=== PATIENT | male | born 1940 | race Caucasian/White ===

== ENCOUNTER 2020-06-03 20:54 | Inpatient (IN) | payer OTHER, SELFPAY ==
[2020-06-03] VITALS (9 sets, daily range): BP systolic 81–143; BP diastolic 51–84; PULSE 77–110; RESP 13–20; TEMP 36.2; O2SAT 93–100; BMI 29.1
--- NOTE | 2020-06-03 20:59 | ED_ITS ---
HPI - GI Bleed General Chief complaint: GI Bleed Stated complaint: BLEEDING ANAL Time Seen by Provider: 06/03/20 20:59 Source: patient and family Mode of arrival: Ambulatory Limitations: no limitations History of Present Illness HPI Narrative: 79M nonsmoker with history of Parkinson's, Diverticulosis, CAD, HTN, and Polymyalgia Rheumatica [resents with 4 days of bright red blood streaks with bowel movements. Today he started developing some lower abdominal cramping followed by a large bloody bowel movement. He felt some improvement in the lower cramping after that bowel movement. He feels a bit fatigued and l ightheaded, particularly with standing and ambulating. He denies any significant shortness of breath. He denies much in the way of pain. He takes no blood thinners and denies any history of gastrointestinal bleeding. He states he thinks he does have a history of diverticulosis. He denies any runny nose, sore throat nor cough. He has had no fever chills denies any exposure to persons known to be positive or under suspicion for COVID-19. He had seen his primary care provider this morning, when symptoms were much milder, and there was discussion about connecting him with a surgeon or environmental services associate but there was no opening until July. His symptoms worsened significantly this evening with the large bloody bowel movements as mentioned above. Related Data Allergies Allergy/AdvReac Type Severity Reaction Status Date / Time epinephrine [From ADRENALIN] Allergy Unknown Verified 06/03/20 21:02 meperidine [From DEMEROL] Allergy Unknown Verified 06/03/20 21:02 Penicillins [PENICILLINS] Allergy Unknown Verified 06/03/20 21:02 Review of Systems Constitutional Constitutional: Denies chills, Reports fatigue, Denies fever(s), Denies frequent falls, Reports lethargy and Reports weakness Eyes Eyes: Denies change in vision, Denies eye discharge, Denies irritation and Denies loss of vision ENT Ears, Nose, Mouth, and Throat: Denies change in voice, Denies dizziness, Denies neck pain, Denies sore throat and Denies throat swelling Cardiovascular Cardiovascular: Denies chest pain, Denies irregular heart rhythm, Denies lightheadedness, Denies palpitations, Denies dyspnea, Denies dyspnea on exertion and Denies orthopnea Respiratory Respiratory: Denies cough, Denies dyspnea, Denies dyspnea on exertion and Denies wheezing Gastrointestinal Gastrointestinal: Reports abdominal pain, Reports hematochezia, Denies change in bowel habits, Denies diarrhea, Denies nausea and Denies vomiting Musculoskeletal Musculoskeletal: Denies neck pain and Denies numbness Integumentary/Breasts Skin/Breast: Denies pruritus, Denies erythema, Denies rash and Denies wounds Neurologic Neurologic: Denies behavioral changes, Denies confusion, Denies dizziness, De nies frequent falls, Denies loss of vision, Denies numbness and Reports weakness Psychiatric Psychiatric: Denies anxiety, Denies behavioral changes, Denies confusion, Denies depression, Denies homicidal ideation and Denies suicidal ideation Endocrine Endocrine: Reports fatigue, Denies flushing and Denies palpitations Hematologic/Lymphatic Hematologic/Lymphatic: Denies easy bruising Allergic/Immunologic Allergic/Immunologic: Denies urticaria, Denies throat swelling and Denies wheezing Patient History Social History Smoking Status: Never smoker Smoking Status: Never smoker alcohol intake frequency: 0-2 drinks per day Substance Use Type: does not use Exam Narrative Exam Narrative: GENERAL: [79] year old patient appears stated age. Well- nourished, well-developed patient, in mild distress. HEAD: Atraumatic. Normocephalic. EYES: Pupils equal round and reactive. Extraocular motions intact. No scleral icterus. No injection or drainage. ENT: Nose without bleeding, purulent drainage. Throat without erythema, tonsillar hypertrophy or exudate. Airway patent. NECK: Trachea midline. Non tender CARDIOVASCULAR: Regular rate and rhythm without murmurs, gallops, or rubs. RESPIRATORY: Clear to auscultation. Breath sounds equal bilaterally. No wheezes, rales, or rhonchi. GASTROINTESTINAL: Abdomen soft, non-tender, nondistended. Bowel sounds present in all 4 quadrants RECTAL: grossly heme positive EXTREMITIES: No edema or joint tenderness. BACK: Nontender without deformity or crepitance. No flank tenderness. NEURO: AOx3. SKIN: No rash or erythema of visible areas Initial Vital Signs Initial Vital Signs: Vital Signs Pulse Oximetry 100 06/03/20 21:00 Course Orders Ordered: ED Orders 06/03/20 21:07 Complete Blood Count AUTO DIFF Stat Comprehensive Metabolic Panel Stat Prothrombin Time INR Stat Type and Screen Stat 06/03/20 22:04 COVID19 Stat Consultations Consultation #1: call to Dr. Hayes who will see patient in the morning, possible scope tomorrow afternoon/evening if his bleeding slows a bit. Recommends clear liquid diet Consultation #2: Hospitalist happy to accept Vital Signs Vital signs: Vital Signs - 8 hr 06/03/20 21:00 06/03/20 21:01 06/03/20 21:02 Pulse Rate 107 H 110 H Respiratory Rate 18 Blood Pressure 129/81 129/81 Pulse Oximetry 100 97 97 06/03/20 21:30 06/03/20 22:00 Pulse Rate 101 H 95 H Respiratory Rate 13 19 Blood Pressure 141/81 H 132/84 Pulse Oximetry 95 95 MDM - GI Bleed Lab Data Result diagrams: 06/03/20 21:25 06/03/20 21:25 Labs: Lab Results 06/03/20 06/03/20 06/03/20 Range/Units 21:25 21:25 21:25 WBC 12.4 H (4.5-11.0) X10^3/uL RBC 4.62 (4.5-5.9) X10^6/uL Hgb 14.0 (13.5-17.5) g/dL Hct 42.2 (41-53) % MCV 91.2 (80-100) fL MCH 30.2 (26-34) PG MCHC 33.1 (30-36) % RDW 13.7 (11.6-14.8) % Plt Count 321 (150-400) X10^3/uL Neut % (Auto) 65.7 (50-75) % Lymph % (Auto) 22.6 L (25-40) % [place] % (Auto) 8.4 (3-14) % Eos % (Auto) 2.2 (2-4) % Baso % (Auto) 1.1 (0-2) % Neut # (Auto) 8100 H (0478-5127) /uL Lymph # (Auto) 2800 (4855-9828) /uL [place] # (Auto) 1000 H (0-900) /uL Eos # (Auto) 300 (0-450) /uL Baso # (Auto) 100 (0-100) /uL PT 13.1 H (10.1-12.7) SECONDS INR 1.1 (0.9-1.3) Sodium 139 (137-145) mmol/L Potassium 3.9 (3.4-5.1) mmol/L Chloride 107 (98-107) mmol/L Carbon Dioxide 24 (22-32) mmol/L BUN 25 H (9-20) mg/dL Creatinine 1.00 (0.66-1.25) mg/dL Estimated GFR > 60.0 (>60) mL/min BUN/Creatinine Ratio 25.0 H (6-22) Glucose 132 H (80-110) mg/dL Calcium 9.2 (8.4-10.2) mg/dL Total Bilirubin 0.3 (0.2-1.3) mg/dL AST 28 (17-59) IU/L ALT 22 (<50) IU/L Alkaline Phosphatase 73 (38-126) U/L Total Protein 7.6 (6.3-8.2) g/dL Albumin 4.4 (3.5-5.0) g/dL Globulin 3.2 (1.7-4.1) g/dL Albumin/Globulin Ratio 1.4 (1.0-2.8) Blood Type Antibody Screen 06/03/20 Range/Units 21:25 WBC (4.5-11.0) X10^3/uL RBC (4.5-5.9) X10^6/uL Hgb (13.5-17.5) g/dL Hct (41-53) % MCV (80-100) fL MCH (26-34) PG MCHC (30-36) % RDW (11.6-14.8) % Plt Count (150-400) X10^3/uL Neut % (Auto) (50-75) % Lymph % (Auto) (25-40) % [place] % (Auto) (3-14) % Eos % (Auto) (2-4) % Baso % (Auto) (0-2) % Neut # (Auto) (7425-2531) /uL Lymph # (Auto) (0945-4941) /uL [place] # (Auto) (0-900) /uL Eos # (Auto) (0-450) /uL Baso # (Auto) (0-100) /uL PT (10.1-12.7) SECONDS INR (0.9-1.3) Sodium (137-145) mmol/L Potassium (3.4-5.1) mmol/L Chloride (98-107) mmol/L Carbon Dioxide (22-32) mmol/L BUN (9-20) mg/dL Creatinine (0.66-1.25) mg/dL Estimated GFR (>60) mL/min BUN/Creatinine Ratio (6-22) Glucose (80-110) mg/dL Calcium (8.4-10.2) mg/dL Total Bilirubin (0.2-1.3) mg/dL AST (17-59) IU/L ALT (<50) IU/L Alkaline Phosphatase (38-126) U/L Total Protein (6.3-8.2) g/dL Albumin (3.5-5.0) g/dL Globulin (1.7-4.1) g/dL Albumin/Globulin Ratio (1.0-2.8) Blood Type A Positive Antibody Screen Negative Discharge Plan Departure Patient Disposition: Admitted as Observation Clinical Impression: Lower gastrointestinal hemorrhage
--- NOTE | 2020-06-03 21:32 | PC.NURSE ---
Patient filled toilet bowl with bright red blood. patient states this is the 4th episode tonight.
[2020-06-03 21:39] LABS: Add Manual Diff / Slide Review NO; Basophils Absolute Auto 100 /uL (0-100); Basophils Percent Auto 1.1 % (0-2); Eosinophils Absolute Auto 300 /uL (0-450); Eosinophils Percent Auto 2.2 % (2-4); Hematocrit 42.2 % (41-53); Lymphocytes Absolute Auto 2800 /uL (1100-4500); Lymphocytes Percent Auto 22.6 % (25-40); Mean Corpuscular HGB Conc 33.1 % (30-36); Mean Corpuscular Hemoglobin 30.2 PG (26-34); Mean Corpuscular Volume 91.2 fL (80-100); Monocytes Absolute Auto 1000 /uL (0-900); Monocytes Percent Auto 8.4 % (3-14); Neutrophils Absolute Auto 8100 /uL (1500-7000); Neutrophils Percent Auto 65.7 % (50-75); Platelet Count 321 X10^3/uL (150-400); Red Blood Cell Count 4.62 X10^6/uL (4.5-5.9); Red Cell Distribution Width 13.7 % (11.6-14.8); White Blood Cell Count 12.4 X10^3/uL (4.5-11.0)
--- NOTE | 2020-06-03 21:43 | PC.NURSE ---
Patient reports 4 episodes of filling the toilet bowl with bright red blood
[2020-06-03 21:46] LABS: INR 1.1 (0.9-1.3); Prothrombin Time 13.1 SECONDS (10.1-12.7)
[2020-06-03 21:47] LABS: Alanine Aminotransferase 22 IU/L (<50); Albumin 4.4 g/dL (3.5-5.0); Albumin Globulin Ratio 1.4 (1.0-2.8); Alkaline Phosphatase 73 U/L (38-126); Aspartate Aminotransferase 28 IU/L (17-59); Bilirubin Total 0.3 mg/dL (0.2-1.3); Blood Urea Nitrogen 25 mg/dL (9-20); Calcium 9.2 mg/dL (8.4-10.2); Carbon Dioxide 24 mmol/L (22-32); Chloride 107 mmol/L (98-107); Estimated Glomerular Filt Rate > 60.0 mL/min (>60); Globulin 3.2 g/dL (1.7-4.1); Glucose 132 mg/dL (80-110); HEMOLYSIS < 15 (0-50); Potassium 3.9 mmol/L (3.4-5.1); Sodium 139 mmol/L (137-145); Total Protein 7.6 g/dL (6.3-8.2)
--- NOTE | 2020-06-03 21:50 | PC.NURSE ---
[facility] episode of bright red rectal bleeding.
--- NOTE | 2020-06-03 22:03 | PC.NURSE ---
Patient up to bedside commode with 6th episode of bright red rectal bleeding.
[2020-06-03 22:41] LABS: COVID19 -Nasal RAPID Negative (Negative)
[2020-06-03 23:03] LABS: Hematocrit 39.8 % (41-53); Hemoglobin 12.9 g/dL (13.5-17.5)
--- NOTE | 2020-06-03 23:12 | PC.NURSE ---
Addendum entered by Kristel Sullivan R.N. 06/03/20 23:18: continue previous note: notified of events and heading to pt's room. Order obtained and carried out for IVF NS bolus (started). Lab to room to draw H&H and new BP taken; 124/72. Original Note: event upon arrival to AC unit, pt had requested to use restroom. Pt assisted to BR by SHELL MAKER LOCKSTITCH. Per SHELL MAKER LOCKSTITCH, upon pt standing from toilet to pull up his pants pt became lightheaded and had near syncopal episode. pt was assisted to sit on toilet and this RN, RN L.V., and 2nd SHELL MAKER LOCKSTITCH applied gait belt and assisted pt to WC to transport to bed. VS taken and showed BP of 81/51. pt stand/transfer to bed. states feeling better laying down. pt had large loose bloody stool. Dr. Payne
[2020-06-03] MEDS: SODIUM CHLORIDE 0.9% 1,000 ML 1000 ML IV (23:33)
[2020-06-03] MEDS: CARBIDOPA-LEVODOPA 25/100 TABLET 1 EACH PO (23:41)
[2020-06-04] VITALS (10 sets, daily range): BP systolic 115–149; BP diastolic 56–88; PULSE 68–107; RESP 16–18; TEMP 36.2–36.9; O2SAT 96–98
[2020-06-04] MEDS: LACTATED RINGERS 1,000 ML 100 ML IV ×3 (00:01→19:13)
--- NOTE | 2020-06-04 00:19 | PM.HP.1 ---
History of Present Illness History of Present Illness Date Patient Seen: 06/03/20 Time Patient Seen: 23:30 Chief complaint: Rectal bleeding Narrative: Tiffany Villar is a 79 y.o. male with a history of diverticulosis and prostate cancer, Parkinson's, hypertension, and well controlled hyperlipidemia was in his usual state of health when he began to have blood tinged stools over the past 2-3 days. On the day of admission, he felt abdominal cramping, then a sensation of needing to have an urgent bowel movement, and when he reached the toilet he had a very bloody bowel movement. He apparently had one in the ED and 5 such movements within the past 24 hours. He feels a bit fatigued and lightheaded, and dizzy worsened with particularly with standing or ambulating. He denies any significant shortness of breath. He denies much in the way of pain. He takes no blood thinners and denies any history of gastrointestinal bleeding. He states he thinks he does have a history of diverticulosis, anal fissures and internal hemmorhoids. He denies any nasal congestion, sore throat or cough. Denies fever chills any exposure to persons known to be positive or under suspicion for COVID-19. He had seen his primary care provider this morning, when symptoms were much milder, and who planned to refer him for a colonoscopy. During his arrival to the floor, he had another bloody bowel movement and his blood pressure dropped to 81/51 and was bolused with normal saline and shortly thereafter became normotensive. Patient was referred to General surgery while he was in the emergency department and Dr. Hayes has agreed to see the patient in the morning. His temperature was 97.2?, blood pressure 140/75, heart rate 82, respiratory rate 16, S oxygen saturation was 96% on room air he weighs 92 kg with a BMI of 29.1. WBC is mildly elevated at 12.4, RBC 4.62, hemoglobin 12.9 and hematocrit is 39.8, does have a mildly elevated neutrophil count at 8100, with monocytes of over 1000, his PT is 13.1, chemistries are essentially normal with the exception of a mildly elevated BUN of 25 and a glucose of 132. COVID-19 PCR was negative and he is an A positive blood type. Patient History Medical History Diverticulitis Essential hypertension History of prostate cancer Hyperlipidemia Parkinsons disease Surgical History History of cardiac catheterization History of prostate surgery Family & Social History Family History Mother Breast cancer Father Myocardial infarction Social History: household members spouse Prior Living Arrangements House Safety & Behavioral: Feels Safe in Current Yes Environment Been Physically Hurt or No Threatened By a Person Suicidal Ideation Description None Suicide Plan Description No Plan Tobacco & Substance use: Smoking Status Never smoker alcohol intake current alcohol intake frequency 0-2 drinks per day Substance Use Type does not use Meds Home Medications and Allergies Home Medications Medication Instructions Recorded Confirmed Type allopurinol 300 mg PO 3XW 06/03/20 06/03/20 History aspirin 162 mg PO DAILY 06/03/20 06/03/20 History atorvastatin 10 mg PO DAILY 06/03/20 06/03/20 History carbidopa-levodopa 1 tab PO TID 06/03/20 06/03/20 History levothyroxine 50 mcg PO DAILY 06/03/20 06/03/20 History metoprolol succinate 100 mg PO DAILY 06/03/20 06/03/20 History Allergies Allergy/AdvReac Type Severity Reaction Status Date / Time epinephrine [From ADRENALIN] Allergy Unknown Verified 06/03/20 21:02 meperidine [From DEMEROL] Allergy Unknown Verified 06/03/20 21:02 Penicillins [PENICILLINS] Allergy Unknown Verified 06/03/20 21:02 Review of Systems Review of Systems ROS: Yes All systems reviewed with the patient and are negative except as otherwise documented Exam Vital Signs (past 8 hours): - 06/03/20 21:00 06/03/20 21:01 06/03/20 21:02 Temperature Pulse Rate 107 H 110 H Respiratory Rate 18 Blood Pressure 129/81 129/81 Pulse Oximetry 100 97 97 06/03/20 21:30 06/03/20 22:00 06/03/20 22:30 Temperature Pulse Rate 101 H 95 H 92 H Respiratory Rate 13 19 20 Blood Pressure 141/81 H 132/84 143/84 H Pulse Oximetry 95 95 93 06/03/20 22:50 06/03/20 22:58 06/03/20 23:08 Temperature 97.2 F L Pulse Rate 88 88 77 Respiratory Rate 18 Blood Pressure 124/72 81/51 L 138/78 Pulse Oximetry 95 06/04/20 00:16 Temperature 97.2 F L Pulse Rate 82 Respiratory Rate 16 Blood Pressure 140/75 Pulse Oximetry 96 Oxygen Delivery Method Room Air Narrative Exam Narrative: Gen: Alert, oriented, well-developed 79 y.o. male, has bilateral facial flushing, slightly pale HEENT: normocephalic, atraumatic, conjunctiva clear, sclera non-icteric, oral mucosa pink and moist Neck: supple, full ROM, no JVD, trachea is midline Resp: Lungs CTA, non-labored breathing CV: RRR, no murmur or rubs Abd: soft, non-tender, normoactive BTs Skin: no lesions or rashes, dry and intact Neuro: Resting tremor of the left hand. Alert and oriented X 4 w/no focal deficits. Speech clear and coherent. Extremities: moves all 4 extremities, is ambulatory, negative Yariel?s sign Psyche: normal mood and affect. Objective Labs Result Diagrams: 06/03/20 22:50 06/03/20 21:25 Labs: Laboratory Results - last 24 hr 06/03/20 06/03/20 06/03/20 21:25 21:25 21:25 WBC 12.4 H RBC 4.62 Hgb 14.0 Hct 42.2 MCV 91.2 MCH 30.2 MCHC 33.1 RDW 13.7 Plt Count 321 Neut % (Auto) 65.7 Lymph % (Auto) 22.6 L [place] % (Auto) 8.4 Eos % (Auto) 2.2 Baso % (Auto) 1.1 Neut # (Auto) 8100 H Lymph # (Auto) 2800 [place] # (Auto) 1000 H Eos # (Auto) 300 Baso # (Auto) 100 PT 13.1 H INR 1.1 Sodium 139 Potassium 3.9 Chloride 107 Carbon Dioxide 24 BUN 25 H Creatinine 1.00 Estimated GFR > 60.0 BUN/Creatinine Ratio 25.0 H Glucose 132 H Calcium 9.2 Total Bilirubin 0.3 AST 28 ALT 22 Alkaline Phosphatase 73 Total Protein 7.6 Albumin 4.4 Globulin 3.2 Albumin/Globulin Ratio 1.4 COVID-19 PCR Blood Type Antibody Screen 06/03/20 06/03/20 06/03/20 21:25 22:19 22:50 WBC RBC Hgb 12.9 L Hct 39.8 L MCV MCH MCHC RDW Plt Count Neut % (Auto) Lymph % (Auto) [place] % (Auto) Eos % (Auto) Baso % (Auto) Neut # (Auto) Lymph # (Auto) [place] # (Auto) Eos # (Auto) Baso # (Auto) PT INR Sodium Potassium Chloride Carbon Dioxide BUN Creatinine Estimated GFR BUN/Creatinine Ratio Glucose Calcium Total Bilirubin AST ALT Alkaline Phosphatase Total Protein Albumin Globulin Albumin/Globulin Ratio COVID-19 PCR Negative Blood Type A Positive Antibody Screen Negative Assessment & Plan Assessment & Plan narrative: Tiffany Villar will be as an inpatient for further workup and assessment of a lower GI bleed. Lower GI bleed, acute, present on admission -patient's H&H will be checked every 6 hours and has been typed and screened -Orthostatic vital signs q shift -strict bedrest -clear diet -General surgery has been notified, consult appreciated Essential hypertension, chronic and present on admission -Continue home doses of metoprolol within parameters, may require holding depending on blood pressure CAD, chronic -his Asprin has been held due to current bleeding Hyperlipidemia, chronic -Continue home dose of Atorvastatin 10 mg po at bedtime Parkinson's, chronic and present on admission -He has a resting tremor of the left hand and arm, states worsens with stress and fatigue -Continue home dose of carbidopa-levodopa 25/100 tid Episodic gout -He takes allupurinol, this is being held. VTE prophylaxis: Wells risk score: 0 Bilateral SCDs, pharmacological prophylaxis is contraindicated in the setting of active bleeding. Consults: Dr. Hayes, consult and involvement is appreciated. Patient is admitted under inpatient status with expected length of stay greater than 2 midnights due to severity of presenting symptoms, risk of adverse event, and complexity of treatment plan. FEN: LR at 100 ml/hour, clears, BMP and magnesium in the am. Dispo: unknown at this time, presuming discharge to home Code Status: Full code as discussed with patient and his Scores Wells' Criteria for PE Clinical signs and symptoms of DVT: No PE is #1 Dx or equally likely: No Heart rate > 100: No Immobilization at least 3 days or surg in previous 4 weeks: No History of PE or DVT: No Hemoptysis: No Malignancy w/Treatment within 6 months or palliative: No Wells' PE Score total: 0 Quality VTE Deep Vein Thrombosis/Pulmonary Embolism Present on Admission: No
[2020-06-04] MEDS: LEVOTHYROXINE 50 MCG TABLET PO (05:55)
[2020-06-04 06:03] LABS: Add Manual Diff / Slide Review NO; Basophils Absolute Auto 100 /uL (0-100); Basophils Percent Auto 0.8 % (0-2); Eosinophils Absolute Auto 100 /uL (0-450); Eosinophils Percent Auto 0.9 % (2-4); Hematocrit 34.9 % (41-53); Hemoglobin 11.6 g/dL (13.5-17.5); Lymphocytes Absolute Auto 2100 /uL (1100-4500); Lymphocytes Percent Auto 18.4 % (25-40); Mean Corpuscular HGB Conc 33.1 % (30-36); Mean Corpuscular Hemoglobin 30.4 PG (26-34); Mean Corpuscular Volume 91.7 fL (80-100); Monocytes Absolute Auto 900 /uL (0-900); Monocytes Percent Auto 7.8 % (3-14); Neutrophils Absolute Auto 8300 /uL (1500-7000); Neutrophils Percent Auto 72.1 % (50-75); Platelet Count 245 X10^3/uL (150-400); Red Cell Distribution Width 13.7 % (11.6-14.8); White Blood Cell Count 11.5 X10^3/uL (4.5-11.0)
[2020-06-04 06:10] LABS: BUN Creatinine Ratio 27.5 (6-22); Blood Urea Nitrogen 22 mg/dL (9-20); Calcium 8.8 mg/dL (8.4-10.2); Carbon Dioxide 27 mmol/L (22-32); Chloride 107 mmol/L (98-107); Estimated Glomerular Filt Rate > 60.0 mL/min (>60); Glucose 115 mg/dL (80-110); HEMOLYSIS < 15 (0-50); Potassium 4.4 mmol/L (3.4-5.1); Sodium 139 mmol/L (137-145)
[2020-06-04] MEDS: METOPROLOL ER 50 MG TABLET 100 MG PO (09:33)
[2020-06-04] MEDS: CARBIDOPA-LEVODOPA 25/100 TABLET 1 EACH PO ×3 (09:33→21:05)
--- NOTE | 2020-06-04 09:49 | P.CONS_ITS ---
History of Present Illness Consult details Date Patient Seen: 06/04/20 Time Patient Seen: 09:49 Chief complaint: Rectal bleeding Reason for consult: Rectal bleeding with anemia Requesting provider: Bonnie Andino Narrative: The patient is a gentleman admitted through the night. The last 3 days he has had a small amount of blood per rectum and was seen by his primary care provider and recommended having her colonoscopy. His last colonoscopy was in 2011. He has known diverticulosis . He has had diverticulitis in the past. Yesterday evening he began having a large amount of blood per rectum. It was quite red initially. It is dark and over the next 3 bloody bowel movements the last being about an hour ago. He reported that it was black but the person who empty that said it was dark maroon. He has been having some lower abdominal crampy pain for the last several weeks. No nausea or vomiting. He has never had bleeding like this before. He has become lightheaded at times with standing since the bleeding began. No history of ulcer disease. He is not on any blood thinners except he does take 2 baby aspirins daily. Meds Home Medications and Allergies Home Medications Medication Instructions Recorded Confirmed Type allopurinol 300 mg PO 3XW 06/03/20 06/03/20 History aspirin 162 mg PO DAILY 06/03/20 06/03/20 History atorvastatin 10 mg PO DAILY 06/03/20 06/03/20 History carbidopa-levodopa 1 tab PO TID 06/03/20 06/03/20 History levothyroxine 50 mcg PO DAILY 06/03/20 06/03/20 History metoprolol succinate 100 mg PO DAILY 06/03/20 06/03/20 History Allergies Allergy/AdvReac Type Severity Reaction Status Date / Time epinephrine [From ADRENALIN] Allergy Unknown Verified 06/03/20 21:02 meperidine [From DEMEROL] Allergy Unknown Verified 06/03/20 21:02 Penicillins [PENICILLINS] Allergy Unknown Verified 06/03/20 21:02 Review of Systems Review of Systems Narrative: Patient wears glasses and has noted his eyes get tired reading on the computer easily. No double vision pain is eyes earache sore throats or trouble swallowing. No tooth aches. No cough cold or asthma. He has had 2 cardiac caths in the past for cardiac related symptomatology that was ultimately felt to be related to anxiety. Both catheterizations were normal per his history. No nausea or vomiting. Until recently he has had occasional blood on the tissue. No history kidney stones. He has had his prostate removed for cancer. Did not receive radiation. No seizures or blackouts. He suffers from Parkinson's disease. Is on medication for same. No unusual bruising or bleeding in ge neral. Suffer some claustrophobia but has never taken medication for it no anxiety or depression treatment, though we he has had symptoms that led to cardiac catheterization that were ultimately ascribed to anxiety. Exam Vital Signs (past 8 hours): - 06/04/20 04:59 06/04/20 07:55 Temperature 98 F Pulse Rate 68 Pulse Rate [Orthostatic Lying] 72 Pulse Rate [Orthostatic Sitting] 82 Pulse Rate [Orthostatic Standing] 101 H Respiratory Rate 16 Blood Pressure 137/78 Blood Pressure [Orthostatic Lying] 126/77 Blood Pressure [Orthostatic Sitting] 131/79 Blood Pressure [Orthostatic Standing] 145/86 H Pulse Oximetry 97 Oxygen Delivery Method Room Air Oxygen Flow Rate 0 Narrative Exam Narrative: Cooperative no apparent distress. Eyes are non icteric pupils equal round reactive to light conjunctiva pink ears without lesion. Nasal septum midline. No polyps seen. Oral mucosa moist without open lesion. Teeth are intact. No splits in his lips. His neck is supple. There are no palpable masses or nodes in the neck or supraclavicular areas. Trachea is midline mobile. Thyroid is not enlarged. Lungs are clear to auscultation without rales or rhonchi. Equal percussion. Heart very distant tones. I do not hear a murmur gallop. No bruit in the neck. No heave lift or thrill. Normal 2+ pedal pulses. Patient has abdomen is protuberant soft. He has a scar from below his umbilicus to suprapubic area from his prostate surgery. He has a tiny nontender reducible umbilical hernia. The remainder of his abdomen is nontender except for slight tenderness in the left lower quadrant. No voluntary guarding. Normoactive bowel sounds. Patient is alert and oriented x3. Speech rate and content are appropriate affect is appropriate. Skin in his right arm was somewhat scarred. Otherwise skin is without significant lesion. He has decreased hair on his lower extremities. Objective Labs Result Diagrams: 06/04/20 05:45 06/04/20 05:45 Labs: Laboratory Results - last 24 hr 06/03/20 06/03/20 06/03/20 21:25 21:25 21:25 WBC 12.4 H RBC 4.62 Hgb 14.0 Hct 42.2 MCV 91.2 MCH 30.2 MCHC 33.1 RDW 13.7 Plt Count 321 Neut % (Auto) 65.7 Lymph % (Auto) 22.6 L [place] % (Auto) 8.4 Eos % (Auto) 2.2 Baso % (Auto) 1.1 Neut # (Auto) 8100 H Lymph # (Auto) 2800 [place] # (Auto) 1000 H Eos # (Auto) 300 Baso # (Auto) 100 PT 13.1 H INR 1.1 Sodium 139 Potassium 3.9 Chloride 107 Carbon Dioxide 24 BUN 25 H Creatinine 1.00 Estimated GFR > 60.0 BUN/Creatinine Ratio 25.0 H Glucose 132 H Calcium 9.2 Magnesium Total Bilirubin 0.3 AST 28 ALT 22 Alkaline Phosphatase 73 Total Protein 7.6 Albumin 4.4 Globulin 3.2 Albumin/Globulin Ratio 1.4 COVID-19 PCR Blood Type Antibody Screen 06/03/20 06/03/20 06/03/20 21:25 22:19 22:50 WBC RBC Hgb 12.9 L Hct 39.8 L MCV MCH MCHC RDW Plt Count Neut % (Auto) Lymph % (Auto) [place] % (Auto) Eos % (Auto) Baso % (Auto) Neut # (Auto) Lymph # (Auto) [place] # (Auto) Eos # (Auto) Baso # (Auto) PT INR Sodium Potassium Chloride Carbon Dioxide BUN Creatinine Estimated GFR BUN/Creatinine Ratio Glucose Calcium Magnesium Total Bilirubin AST ALT Alkaline Phosphatase Total Protein Albumin Globulin Albumin/Globulin Ratio COVID-19 PCR Negative Blood Type A Positive Antibody Screen Negative 06/04/20 06/04/20 06/04/20 05:45 05:45 05:45 WBC 11.5 H RBC 3.80 L Hgb 11.6 L Hct 34.9 L MCV 91.7 MCH 30.4 MCHC 33.1 RDW 13.7 Plt Count 245 Neut % (Auto) 72.1 Lymph % (Auto) 18.4 L [place] % (Auto) 7.8 Eos % (Auto) 0.9 L Baso % (Auto) 0.8 Neut # (Auto) 8300 H Lymph # (Auto) 2100 [place] # (Auto) 900 Eos # (Auto) 100 Baso # (Auto) 100 PT INR Sodium 139 Potassium 4.4 Chloride 107 Carbon Dioxide 27 BUN 22 H Creatinine 0.80 Estimated GFR > 60.0 BUN/Creatinine Ratio 27.5 H Glucose 115 H Calcium 8.8 Magnesium 2.0 Total Bilirubin AST ALT Alkaline Phosphatase Total Protein Albumin Globulin Albumin/Globulin Ratio COVID-19 PCR Blood Type Antibody Screen Assessment & Plan Assessment & Plan narrative: Patient with a presumed lower GI bleed with acute b lood loss anemia who also suffers from Parkinson's disease, elevated cholesterol, gout, and hypothyroidism, and hypertension (all chronic conditions except the bleeding). Patient would benefit from a colonoscopy at this time. I suspect his bleeding is diverticular though other sources are certainly possible such as colitis, internal hemorrhoidal disease, av malformation, tumor. It is been 8 years since his last colonoscopy. I have discussed the bowel prep from procedure with him. Risks of bleeding, perforation(which would probably necessitate a major operation to repair), failure to find removal lesions of the potential tattoo were discussed. He understands that another physician will probably be doing the procedure. Treatment of other medical issues her admitting team.
--- NOTE | 2020-06-04 11:15 | CM.DANOTE ---
Patient is a 79 year old male who was admitted on 06/03/20 for Bleeding. Pt has [facility] for insurance and his PCP is not listed. EMR was reviewed. Per MD, pt has a hx of diverticulosis and prostrate CA and Parkinsons. Pt admitted with likely G.I. Bleed and per Surgeon Consult pt to have a colonoscopy today to help determine source of bleed. Per RN, pt currently on bed rest and clear liquids in anticipation of scope. SW met bedside with pt and explained role and pt confirms that he lives in [facility] with his spouse and they are both fairly independent and active and spouse is available and able to assist at d/c if needed. Pt also has 2 sisters who also live nearby in [facility] and able to assist if needed. Pt denies any hx of HH or SNF and his DPOA is his spouse. Pt denies any pain but states he had bloody diarrhea again this morning. Plan: SW to follow after colonoscopy towards determining POC and identified discharge planning needs. Needs unclear at this time but anticipate home with spouse at discharge. PRANEETH Miller Discharge Planning/Care Management CM Discharge Assessment Start: 06/04/20 11:09 Freq: Status: Active Protocol: Document 06/04/20 11:11 BF (Rec: 06/04/20 11:15 BF [id number]) Discharge Planning Assessment Assigned Business Services Manager PRANEETH Lutz DPOA/Assigned Designee Name Spouse Issa Advance Directives? No Advance Directives on File No History Provided By Patient,Family Member,Medical Record Has Patient been admitted in last 30 No days? Prior Living Arrangements House Household Members spouse Type of transporation used prior to Drives own vehicle admit Independent with ADL's Yes Is patient alert and oriented? Yes Needs Assistance With Home Chores / Shopping Caregiver for Another No Comment Likely home with spouse, r/o HH Barriers to Discharge No Discharge Plan Home Transportation Arrangement Spouse available for transport at d/c Referrals Initiated None needed Additional Comment Pending Surgeon Consult and POC Whiteboard Updated in Patient Room with Yes name and ext. # of Business Services Manager Review Status In Process Please Provide Date Initial DC 06/04/20 Assessment Was Performed Next Review Type Continued Stay Review
[2020-06-04] MEDS: MAGNESIUM CITRATE 300 ML SOLUTION 150 ML PO (17:56)
--- NOTE | 2020-06-04 18:04 | PM.PN.1 ---
Subjective Subjective Date Patient Seen: 06/04/20 Time Patient Seen: 18:04 Interval history: Tiffany Villar is a 79 y.o. male with a history of diverticulosis and prostate cancer, Parkinson's, hypertension, and well controlled hyperlipidemia who is admitted with lower GI bleed. He reports his symptoms are much improved today and is no longer having large amounts of blood, only a small amount when wiping after bowel movements. He had some crampy abdominal pain which is now improved as well. Hemoglobin has been down trending from 14-11.6, repeat is currently pending. The patient denies any chest pain, shortness of breath, dizziness. He had an episode of hypotension that seemingly resolved shortly after. Orthostatics were checked and were negative. He is being prepped for a colonoscopy tomorrow with General surgery. Exam Vital Signs (past 8 hours): - 06/04/20 10:24 06/04/20 11:00 06/04/20 12:16 Temperature 98.2 F Pulse Rate 71 Pulse Rate [Orthostatic Lying] 70 Pulse Rate [Orthostatic Sitting] 89 Pulse Rate [Orthostatic Standing] 90 Respiratory Rate 16 Blood Pressure 132/73 Blood Pressure [Orthostatic Lying] 133/71 Blood Pressure [Orthostatic Sitting] 126/77 Blood Pressure [Orthostatic Standing] 134/77 Pulse Oximetry 97 97 06/04/20 15:40 Temperature 97.8 F Pulse Rate 72 Pulse Rate [Orthostatic Lying] Pulse Rate [Orthostatic Sitting] Pulse Rate [Orthostatic Standing] Respiratory Rate 16 Blood Pressure 138/77 Blood Pressure [Orthostatic Lying] Blood Pressure [Orthostatic Sitting] Blood Pressure [Orthostatic Standing] Pulse Oximetry 96 Oxygen Delivery Method Room Air Oxygen Flow Rate 0 Narrative Exam Narrative: Gen: Alert, oriented, well-developed 79 y.o. male, has bilateral facial flushing, slightly pale HEENT: normocephalic, atraumatic, conjunctiva clear, sclera non-icteric, oral mucosa pink and moist Neck: supple, full ROM, no JVD, trachea is midline Resp: Lungs CTA, non-labored breathing CV: RRR, no murmur or rubs Abd: soft, non-tender, normoactive BTs Skin: no lesions or rashes, dry and intact Neuro: Parkinsonian tremor. Alert and oriented X 4 w/no focal deficits. Speech clear and coherent. Extremities: moves all 4 extremities, is ambulatory, negative Yariel?s sign Psyche: normal mood and affect. Objective Labs Result Diagrams: 06/04/20 05:45 06/04/20 05:45 Labs: Laboratory Results - last 24 hr 06/03/20 06/03/20 06/03/20 21:25 21:25 21:25 WBC 12.4 H RBC 4.62 Hgb 14.0 Hct 42.2 MCV 91.2 MCH 30.2 MCHC 33.1 RDW 13.7 Plt Count 321 Neut % (Auto) 65.7 Lymph % (Auto) 22.6 L [place] % (Auto) 8.4 Eos % (Auto) 2.2 Baso % (Auto) 1.1 Neut # (Auto) 8100 H Lymph # (Auto) 2800 [place] # (Auto) 1000 H Eos # (Auto) 300 Baso # (Auto) 100 PT 13.1 H INR 1.1 Sodium 139 Potassium 3.9 Chloride 107 Carbon Dioxide 24 BUN 25 H Creatinine 1.00 Estimated GFR > 60.0 BUN/Creatinine Ratio 25.0 H Glucose 132 H Calcium 9.2 Magnesium Total Bilirubin 0.3 AST 28 ALT 22 Alkaline Phosphatase 73 Total Protein 7.6 Albumin 4.4 Globulin 3.2 Albumin/Globulin Ratio 1.4 COVID-19 PCR Blood Type Antibody Screen 06/03/20 06/03/20 06/03/20 21:25 22:19 22:50 WBC RBC Hgb 12.9 L Hct 39.8 L MCV MCH MCHC RDW Plt Count Neut % (Auto) Lymph % (Auto) [place] % (Auto) Eos % (Auto) Baso % (Auto) Neut # (Auto) Lymph # (Auto) [place] # (Auto) Eos # (Auto) Baso # (Auto) PT INR Sodium Potassium Chloride Carbon Dioxide BUN Creatinine Estimated GFR BUN/Creatinine Ratio Glucose Calcium Magnesium Total Bilirubin AST ALT Alkaline Phosphatase Total Protein Albumin Globulin Albumin/Globulin Ratio COVID-19 PCR Negative Blood Type A Positive Antibody Screen Negative 06/04/20 06/04/20 06/04/20 05:45 05:45 05:45 WBC 11.5 H RBC 3.80 L Hgb 11.6 L Hct 34.9 L MCV 91.7 MCH 30.4 MCHC 33.1 RDW 13.7 Plt Count 245 Neut % (Auto) 72.1 Lymph % (Auto) 18.4 L [place] % (Auto) 7.8 Eos % (Auto) 0.9 L Baso % (Auto) 0.8 Neut # (Auto) 8300 H Lymph # (Auto) 2100 [place] # (Auto) 900 Eos # (Auto) 100 Baso # (Auto) 100 PT INR Sodium 139 Potassium 4.4 Chloride 107 Carbon Dioxide 27 BUN 22 H Creatinine 0.80 Estimated GFR > 60.0 BUN/Creatinine Ratio 27.5 H Glucose 115 H Calcium 8.8 Magnesium 2.0 Total Bilirubin AST ALT Alkaline Phosphatase Total Protein Albumin Globulin Albumin/Globulin Ratio COVID-19 PCR Blood Type Antibody Screen [facility] Medical History Diverticulitis Essential hypertension History of prostate cancer Hyperlipidemia Parkinsons disease Surgical History History of cardiac catheterization History of prostate surgery Family History Mother Breast cancer Father Myocardial infarction Social History household members: spouse Smoking Status: Never smoker alcohol intake: current Assessment & Plan Assessment & Plan narrative: Tiffany Villar is a 79 y.o. male with a history of diverticulosis and prostate cancer, Parkinson's, hypertension, and well controlled hyperlipidemia who is admitted with lower GI bleed. 1. Lower GI bleed, acute, present on admission -continue to follow h/h. Initial 14 now to 11.6. Repeat pending this evening. Transfuse for Hg <7 or symptomatic anemia. Bleeding has seemingly slowed over the course of today. -Orthostatic vital signs negative. -Dr. Hayes consulted, plan for colonoscopy tomorrow. 2. Essential hypertension, chronic and present on admission -Continue home doses of metoprolol within parameters 3. CAD, chronic -his Asprin has been held due to current bleeding 4. Hyperlipidemia, chronic -Continue home dose of Atorvastatin 10 mg po at bedtime 5. Parkinson's, chronic and present on admission -He has a resting tremor of the left hand and arm, states worsens with stress and fatigue -Continue home dose of carbidopa-levodopa 25/100 tid Dispo: anticipate discharge home after colonoscopy and bleeding resolved, possibly as soon as tomorrow. Diet: CLD, NPO @ [place] for colonoscopy. Code Status: Full code as discussed with patient and his Quality VTE Deep Vein Thrombosis/Pulmonary Embolism Present on Admission: No
[2020-06-04 18:30] LABS: Hematocrit 35.6 % (41-53); Hemoglobin 11.7 g/dL (13.5-17.5)
[2020-06-04] MEDS: PEG3350/SOD SULF,BICARB,CL/KCL 4,000 ML SOLUTION 2000 ML PO (20:31)
[2020-06-04] MEDS: SODIUM CHLORIDE 0.9% FLUSH 10 ML IV (21:05)
[2020-06-04] MEDS: ATORVASTATIN 20 MG TABLET 10 MG PO (21:05)
--- NOTE | 2020-06-04 23:20 | PC.NURSE ---
Pt stable, H&H stable for q6 draw from AM to PM shift. Colonoscopy due, getting bowel prep of mag citrate and go-litely. Blood still present in stool. AOx4, 1x assist to BSC. No cardiovascular or respiratory distress.
[2020-06-05] VITALS (18 sets, daily range): BP systolic 105–155; BP diastolic 58–94; PULSE 72–94; RESP 10–115; TEMP 35.9–37.5; O2SAT 93–97; BMI 29.1
--- NOTE | 2020-06-05 | PATH_ITS ---
[facility] Accession Number: [id number] . 01 Material submitted: . colon - CECAL POLYP . 01 Clinical history: . BLEEDING ANAL . 02 Diagnosis: Cecum, Polyp, Biopsy: Tubulovillous adenoma. No evidence of malignancy or high-grade dysplasia. [facility] 06/11/2020 1543 Local . 02 Comment: As part of routine quality lead, Dr. Ibarra also reviewed this case and agrees with the diagnosis. Additional deeper levels were examined. . . 02 Electronically signed: . Lillian Cordero MD, Pathologist NPI- [id number] . 01 Gross description: . The specimen is received in formalin, labeled cecal polyp and consists of two mims fragments of soft tissue, measuring 1.5 x 1.0 x 0.5 cm in aggregate. The tissue fragments are bisected and the specimen is entirely submitted in cassette A1. ([id number]) /[facility] 06/06/2020 1804 Local . 02 Pathologist provided ICD-10: D12.0 . 02 CPT . 291041 Performed at: 01 [facility] [address], [place], [place] [id number] MD Stanley Johnson MD Phone: [phone] Performed at: 02 [facility] [address] [place], [place] [id number] MD Lillian Cordero MD Phone: [phone]
[2020-06-05] MEDS: LACTATED RINGERS 1,000 ML 100 ML IV (05:40)
[2020-06-05] MEDS: LEVOTHYROXINE 50 MCG TABLET PO (06:27)
[2020-06-05 06:46] LABS: Add Manual Diff / Slide Review NO; Basophils Absolute Auto 100 /uL (0-100); Basophils Percent Auto 0.8 % (0-2); Eosinophils Absolute Auto 100 /uL (0-450); Eosinophils Percent Auto 1.3 % (2-4); Hematocrit 31.3 % (41-53); Hemoglobin 10.3 g/dL (13.5-17.5); Lymphocytes Absolute Auto 1400 /uL (1100-4500); Lymphocytes Percent Auto 16.9 % (25-40); Mean Corpuscular Hemoglobin 30.3 PG (26-34); Mean Corpuscular Volume 91.6 fL (80-100); Monocytes Absolute Auto 800 /uL (0-900); Monocytes Percent Auto 9.2 % (3-14); Neutrophils Absolute Auto 6100 /uL (1500-7000); Neutrophils Percent Auto 71.8 % (50-75); Platelet Count 208 X10^3/uL (150-400); Red Blood Cell Count 3.42 X10^6/uL (4.5-5.9); Red Cell Distribution Width 14.1 % (11.6-14.8); White Blood Cell Count 8.5 X10^3/uL (4.5-11.0)
[2020-06-05 07:00] LABS: BUN Creatinine Ratio 13.3 (6-22); Blood Urea Nitrogen 11 mg/dL (9-20); Calcium 8.2 mg/dL (8.4-10.2); Carbon Dioxide 29 mmol/L (22-32); Chloride 105 mmol/L (98-107); Estimated Glomerular Filt Rate > 60.0 mL/min (>60); Glucose 97 mg/dL (80-110); HEMOLYSIS < 15 (0-50); Magnesium 1.8 mg/dL (1.6-2.3); Potassium 3.8 mmol/L (3.4-5.1); Sodium 139 mmol/L (137-145)
[2020-06-05] MEDS: CARBIDOPA-LEVODOPA 25/100 TABLET 1 EACH PO ×3 (09:08→20:52)
[2020-06-05] MEDS: METOPROLOL ER 50 MG TABLET 100 MG PO (09:08)
--- NOTE | 2020-06-05 12:20 | PM.PREOP ---
Pre-operative Note COVID-19 COVID-19 status: Negative Result date/Date tested (Pos, Neg/Pending): 06/03/20 Interval Note History & Physical reviewed/Exam performed by Physician: Yes Changes to H&P: No H&P completed within 30 days and has changed as indicated here:: Pt has completed bowel prep, and has been NPO since 7:30AM. Anesthesiologist has been requested for the procedure due to patient's frailty and high risk for a respiratory or cardiac complication during the procedure.
--- NOTE | 2020-06-05 13:25 | PM.OP.ENDO ---
Operative Date/Time/Diagnoses Date of procedure: 06/05/20 Time of procedure: 13:25 Pre-op diagnosis: Lower GI bleed Post-op diagnosis: other (Severe diverticulosis throughout the sigmoid and descending colon, large polyp in the cecum biopsied but not completely removed. Poor prep. Not able to visualize polyps smaller than 5 mm) Procedure & Clinicians Study performed: Colonoscopy Biopsy of large cecal polyp Same procedure as scheduled: Yes Indications: GI bleed Surgeon: Jossie Arias Procedure Notes SCOAP/Timeout: Performed Procedure in detail: The patient was brought to the room and placed in left lateral decubitus position with all bony prominences padded. A time-out was performed and then the patient was given deep sedation with propofol by the anesthesiologist. Once adequately sedated, the procedure was begun. A rectal exam was performed revealing no abnormalities. The colonoscope was then introduced to the rectum and advanced to the cecum in the usual fashion. The prep was poor. This limited my ability to see any polyps smaller than 5 mm. The cecum was identified by the appendiceal orifice, the mucosal tri-fold, and the ileocecal valve. There was the 3 cm polyp which is wide and flat in the cecum. It was not bleeding. It was biopsied with hot snare. The specimen was sent to pathology. The entire polyp was not removed. The scope was then retracted while rotating side to side and examining each mucosal fold. Severe diverticulosis was seen throughout the descending and sigmoid colon, with large and small mouthed diverticula. No active bleeding was seen. No bleeding source was seen during this exam. At the conclusion of the procedure retroflexion was performed and moderate grade 2-3 internal hemorrhoids without stigmata of bleeding were seen. The scope was then withdrawn from the rectum the procedure was concluded. The patient tolerated the procedure well and was transferred to the PACU in stable condition. Scope withdrawal time: 20 Findings: diverticulosis (Severe, likely source of bleeding) and polyp (Large, cecal, not completely removed) Specimen(s): other (Biopsy of polyp from cecum) Complications: none Impression: Likely source of bleeding is a diverticula, which have now stopped bleeding. The patient will need to follow-up to discuss pathology results and to discuss recommendations for surveillance or removal of the cecal polyp. Post-procedure Recommendations: Other recommendation (Follow-up with Dr. Arias at [facility] to discuss pathology results in the next 3-4 weeks.) Plan for aftercare: Return to acute care, under the management of the hospitalist. Advance diet as tolerated, and consider discharge when hemoglobin is stable. Follow up: as needed Disposition: PACU
--- NOTE | 2020-06-05 17:50 | PM.PN.1 ---
Subjective Subjective Date Patient Seen: 06/05/20 Interval history: Tiffany Villar is a 79-year-old male with a past medical history significant for hypertension, hyperlipidemia, coronary artery disease, gout, prostate cancer status post prostatectomy and presumed to be in remission, Parkinson's disease, and diverticulosis who presented to the ED with progressive worsening hematochezia x 2-3 days. The patient is resting in bedside chair comfortably. He has had no recurrence of bleeding since bowel prep. Discussed colonoscopy results and likelihood that this was a diverticular bleed and recommended follow-up with general aurgery in 3-4 weeks to discuss large polyp removal. He has no complaints and denies headache, cough, shortness of breath, chest pain, abdominal pain, nausea, vomiting, fever, chills, dysuria, diarrhea or constipation. He is tolerating food. He is voiding (some incontinence) and eliminating without difficulty. He is up ambulating with assistance. Exam Vital Signs (past 8 hours): - 06/05/20 11:45 06/05/20 12:26 06/05/20 13:26 Temperature 98.3 F 98.5 F 99.5 F Pulse Rate 80 90 78 Respiratory Rate 16 115 H 10 L Blood Pressure 138/79 144/76 H 105/59 L Pulse Oximetry 96 97 97 06/05/20 13:31 06/05/20 13:36 06/05/20 13:40 Temperature 99 F Pulse Rate 80 81 82 Respiratory Rate 10 L 12 12 Blood Pressure 122/80 114/61 120/70 Pulse Oximetry 95 94 94 06/05/20 13:45 06/05/20 14:00 06/05/20 14:32 Temperature 97.6 F 98 F Pulse Rate 83 86 86 Respiratory Rate 16 15 16 Blood Pressure 135/71 155/88 H 112/77 Pulse Oximetry 95 94 95 06/05/20 15:00 06/05/20 15:50 06/05/20 16:00 Temperature 99.3 F 96.6 F L 99.0 F Pulse Rate 94 H 91 H Respiratory Rate 18 17 17 Blood Pressure 130/61 128/94 H 131/75 Pulse Oximetry 95 97 96 06/05/20 17:00 Temperature 99.1 F Pulse Rate Respiratory Rate 18 Blood Pressure 132/58 L Pulse Oximetry 93 Oxygen Delivery Method Room Air Oxygen Flow Rate 0 Narrative Exam Narrative: General: Elderly male sittin in bedside chair and in no acute distress, well-developed, well-nourished, appropriately interactive. HEENT: Normocephalic, atraumatic. External ears without defect. Pupils equal, round, and reactive to light. Anicteric sclerae, moist conjunctivae, and no lid lag. Oropharynx free of erythema and cobble stoning with moist mucosa. Neck: Supple with full range of motion. No jugular venous distension. No lymphadenopathy or thyromegaly. Cardiovascular: Regular rate and rhythm without murmurs, rubs, or gallops appreciated. Pulmonary: Clear to auscultation bilaterally without crackles, wheezes, or rhonchi. Normal respiratory effort with no use of accessory muscles. Abdomen: Soft, bowel sound present, nontender, nondistended. No hepatosplenomegaly or masses appreciated. Extremities: No clubbing, cyanosis, or edema. Skin: Normal temperature, turgor, and texture; no rash, ulcers, or subcutaneous nodules appreciated. Neurological: Cranial nerves grossly intact. Resting pill rollong tremor of left hand and arm. Masked facies. Psychiatric: Normal mood and affect. Alert and oriented to person, place, and time. Objective Labs Result Diagrams: 06/05/20 06:25 06/05/20 06:25 Labs: Laboratory Results - last 24 hr 06/04/20 06/05/20 06/05/20 18:19 06:25 06:25 WBC 8.5 RBC 3.42 L Hgb 11.7 L 10.3 L Hct 35.6 L 31.3 L MCV 91.6 MCH 30.3 MCHC 33.0 RDW 14.1 Plt Count 208 Neut % (Auto) 71.8 Lymph % (Auto) 16.9 L [place] % (Auto) 9.2 Eos % (Auto) 1.3 L Baso % (Auto) 0.8 Neut # (Auto) 6100 Lymph # (Auto) 1400 [place] # (Auto) 800 Eos # (Auto) 100 Baso # (Auto) 100 Sodium 139 Potassium 3.8 Chloride 105 Carbon Dioxide 29 BUN 11 Creatinine 0.83 Estimated GFR > 60.0 BUN/Creatinine Ratio 13.3 Glucose 97 Calcium 8.2 L Magnesium 1.8 [facility] Medical History Diverticulitis Essential hypertension History of prostate cancer Hyperlipidemia Parkinsons disease Surgical History History of cardiac catheterization History of prostate surgery Family History Mother Breast cancer Father Myocardial infarction Social History household members: spouse Smoking Status: Never smoker alcohol intake: current Assessment & Plan Assessment & Plan narrative: Tiffany Villar is a 79-year-old male with a past medical history significant for hypertension, hyperlipidemia, coronary artery disease, gout, prostate cancer status post prostatectomy and presumed to be in remission, Parkinson's disease, and diverticulosis who presented to the ED with progressive worsening hematochezia x 2-3 days. 1. Acute lower GI bleed with acute blood loss anemia, present on admission. Resolved. -Patient presented with progressive worsening hemaochezia x 2-3 days with associated fatigue, lightheadedness, and dizziness worsened with standing or ambulating. -Held home aspirin. -Initial hemoglobin 14.0 and slowly trending down now 10.3 due acute blood loss and some hemodilution. Transfusion goal hemoglobin < 8.0. -Orthostatic vital signs negative. -Consulted general surgery, Dr. Arias who performed colonoscopy with no stigmata of recent bleed and believes this likely to be diverticular. Patient does have a large non-bleeding polyp that could not be removed and will need to follow-up with general surgery to discuss removal in 3-4 weeks. 2. CAD and hyperlipidemia, chronic, present on admission. Stable. -Held home aspirin due to GI bleed as above. Continue atorvastatin 10 mg daily bedtime. 3. Hypertension, chronic, present on admission. Stable. -Continue home metoprolol succinate 100 mg daily with hold parameters. 4. Hyperlipidemia, chronic, present on admission. Stable. -Continue home dose of atorvastatin 10 mg daily at bedtime. 5. Parkinson's, chronic, present on admission. Stable. -He has a resting tremor of the left hand and arm that worsens with stress and fatigue. -Continue home dose of carbidopa-levodopa 25/100 mg 3 times daily. 6. Gout, chronic, present on admission. Stable. -Does not represent acute gout flare. -Continue allopurinol three times a week. Code Status: Full code as discussed with patient and his VTE: SCD's, chemical prophylaxis contraindicated due to GI bleed. Disposition: Patient likely discharge home tomorrow if blood counts are stable and no significant bleeding recurs. Quality VTE Deep Vein Thrombosis/Pulmonary Embolism Present on Admission: No
[2020-06-05] MEDS: ATORVASTATIN 20 MG TABLET 10 MG PO (20:52)
[2020-06-05] MEDS: SODIUM CHLORIDE 0.9% FLUSH 10 ML IV (20:53)
--- NOTE | 2020-06-05 22:36 | PC.NURSE ---
Pt stable at start of shift, independent AOx4. No cardiovascular, respiratory, or gastrointestinal distress. VSS. BM during shift, flushed before anyone could assess- pt reports small and loose. No NVD. No pain. H&H trending lower than expected, repeat due in AM. Possible d/c tomorrow.
--- NOTE | 2020-06-05 22:42 | PC.NURSE ---
Verbal order from Dr. Su @ beginning of shift to discontinue pt's telemetry and iv fluids. Verbal order from AYLIN Andino, pt may be up ad guanaco.
[2020-06-06 00:52] VITALS: BP 144/79; PULSE 89; RESP 16; TEMP 35.9; O2SAT 95
--- NOTE | 2020-06-06 01:24 | PC.NURSE ---
0052: Patient is alert and oriented. Has Parkinson's with chronic tremoring noted in left UE. Breath sounds CTA with RA sat of 95%. HRR. BP intermittently elevated and currently is 144/79. Denies nausea. BT hyperactive; states earlier stool (previous shift) was watery but without blood. Chronic urinary urgency and dribbles urine. Independent with mobility and is steady on feet. Denies pain. Refusing SCD's so reminded to ankle wave when awake. Denies any recent falls; fall risk score is moderate. Patient instructed to sit on edge of bed when getting up and if feeling dizzy, lightheaded or weak he is to call for assistance; verbalizes understanding.
[2020-06-06 05:10] VITALS: BP 116/57; PULSE 79; RESP 16; TEMP 36.7; O2SAT 94
[2020-06-06 05:51] LABS: Add Manual Diff / Slide Review NO; Basophils Absolute Auto 100 /uL (0-100); Basophils Percent Auto 1.2 % (0-2); Eosinophils Absolute Auto 100 /uL (0-450); Eosinophils Percent Auto 1.6 % (2-4); Hematocrit 28.9 % (41-53); Hemoglobin 9.7 g/dL (13.5-17.5); Lymphocytes Absolute Auto 1500 /uL (1100-4500); Lymphocytes Percent Auto 19.1 % (25-40); Mean Corpuscular HGB Conc 33.7 % (30-36); Mean Corpuscular Hemoglobin 30.8 PG (26-34); Mean Corpuscular Volume 91.4 fL (80-100); Monocytes Absolute Auto 1000 /uL (0-900); Neutrophils Absolute Auto 5000 /uL (1500-7000); Neutrophils Percent Auto 65.1 % (50-75); Platelet Count 180 X10^3/uL (150-400); Red Blood Cell Count 3.16 X10^6/uL (4.5-5.9); White Blood Cell Count 7.6 X10^3/uL (4.5-11.0)
[2020-06-06 06:04] LABS: BUN Creatinine Ratio 11.8 (6-22); Blood Urea Nitrogen 10 mg/dL (9-20); Calcium 8.3 mg/dL (8.4-10.2); Carbon Dioxide 29 mmol/L (22-32); Chloride 106 mmol/L (98-107); Estimated Glomerular Filt Rate > 60.0 mL/min (>60); Glucose 103 mg/dL (80-110); HEMOLYSIS < 15 (0-50); Magnesium 1.9 mg/dL (1.6-2.3); Potassium 3.5 mmol/L (3.4-5.1); Sodium 137 mmol/L (137-145)
[2020-06-06] MEDS: LEVOTHYROXINE 50 MCG TABLET PO (06:12)
[2020-06-06 08:58] VITALS: BP 122/69; PULSE 89; RESP 16; TEMP 36.7; O2SAT 95
--- NOTE | 2020-06-06 09:09 | P.DS_ITS ---
History of Present Illness History of Present Illness Date Patient Seen: 06/04/20 Chief complaint: Rectal bleeding Narrative: Written by Bonnie VIERA: Tiffany Villar is a 79 y.o. male with a history of diverticulosis and prostate cancer, Parkinson's, hypertension, and well controlled hyperlipidemia was in his usual state of health when he began to have blood tinged stools over the past 2- 3 days. On the day of admission, he felt abdominal cramping, then a sensation of needing to have an urgent bowel movement, and when he reached the toilet he had a very bloody bowel movement. He apparently had one in the ED and 5 such movements within the past 24 hours. He feels a bit fatigued and lightheaded, and dizzy worsened with particularly with standing or ambulating. He denies any significant shortness of breath. He denies much in the way of pain. He takes no blood thinners and denies any history of gastrointestinal bleeding. He states he thinks he does have a history of diverticulosis, anal fissures and internal hemmorhoids. He denies any nasal congestion, sore throat or cough. Denies fever chills any exposure to persons known to be positive or under suspicion for COVID-19. He had seen his primary care provider this morning, when symptoms were much milder, and who planned to refer him for a colonoscopy. During his arrival to the floor, he had another bloody bowel movement and his blood pressure dropped to 81/51 and was bolused with normal saline and shortly thereafter became normotensive. Patient was referred to General surgery while he was in the emergency department and Dr. Hayes has agreed to see the patient in the morning. His temperature was 97.2?, blood pressure 140/75, heart rate 82, respiratory rate 16, S oxygen saturation was 96% on room air he weighs 92 kg with a BMI of 29.1. WBC is mildly elevated at 12.4, RBC 4.62, hemoglobin 12.9 and hematocrit is 39.8, does have a mildly elevated neutrophil count at 8100, with monocytes of over 1000, his PT is 13.1, chemistries are essentially normal with the exception of a mildl y elevated BUN of 25 and a glucose of 132. COVID-19 PCR was negative and he is an A positive blood type. Discharge Providers Provider Date of admission: 06/03/20 22:15 Discharge Date: 06/06/20 Consults: 06/03/20 23:24 Consult to Physician Routine Comment: Consulting Provider: Aj Hayes Reason for consultation: Diverticular bleed Has provider been notified: Yes Discharge provider: Angelica Su DO Summary Hospital Course Discharge Diagnosis: 1. Acute lower GI bleed with acute blood loss anemia, present on admission. Resolved. 2. CAD and hyperlipidemia, chronic, present on admission. Stable. 3. Hypertension, chronic, present on admission. Stable. 4. Hyperlipidemia, chronic, present on admission. Stable. 5. Parkinson's, chronic, present on admission. Stable. 6. Gout, chronic, present on admission. Stable. Hospital Course: Tiffany Villar is a 79-year-old male with a past medical history significant for hypertension, hyperlipidemia, coronary artery disease, gout, prostate cancer status post prostatectomy and presumed to be in remission, Parkinson's disease, and diverticulosis who presented to the ED with progressive worsening hematochezia x 2-3 days. 1. Acute lower GI bleed with acute blood loss anemia, present on admission. Resolved. -Patient presented with progressive worsening hematochezia x 2-3 days with associated fatigue, lightheadedness, and dizziness worsened with standing or ambulating. -Held home aspirin 81 mg daily and restarted prior to discharge. -Initial hemoglobin 14.0 and slowly trended down but stable at 9.7 due acute blood loss and some hemodilution from IV fluids. Transfusion goal hemoglobin < 8.0. -Orthostatic vital signs negative. -Consulted general surgery, Dr. Arias, who performed colonoscopy with no stigmata of recent bleed and believes this likely to be diverticular in etiology. Patient does have a large non-bleeding polyp that could not be removed and will need to follow-up with Dr. Melendez to discuss removal in 3-4 [facility]. 2. CAD and hyperlipidemia, chronic, present on admission. Stable. -Held home aspirin 81 mg daily due to GI bleed as above and restarted prior to discharge. Continued atorvastatin 10 mg daily bedtime. 3. Hypertension, chronic, present on admission. Stable. -Continued home metoprolol succinate 100 mg daily. 4. Hyperlipidemia, chronic, present on admission. Stable. -Continued home dose of atorvastatin 10 mg daily at bedtime. 5. Parkinson's, chronic, present on admission. Stable. -He has a resting tremor of the left hand and arm that worsens with stress and fatigue. -Continued home dose of carbidopa-levodopa 25/100 mg 3 times daily. 6. Gout, chronic, present on admission. Stable. -Does not represent acute gout flare. -Continued allopurinol three times a week. Exam Vital Signs (past 8 hours): - 06/06/20 05:10 06/06/20 08:58 Temperature 98.0 F 98.1 F Pulse Rate 79 89 Respiratory Rate 16 16 Blood Pressure 116/57 L 122/69 Pulse Oximetry 94 95 Oxygen Delivery Method Room Air Oxygen Flow Rate 0 Narrative Exam Narrative: General: Elderly male sittin in bedside chair and in no acute distress, well- developed, well-nourished, appropriately interactive. HEENT: Normocephalic, atraumatic. External ears without defect. Pupils equal, round, and reactive to light. Anicteric sclerae, moist conjunctivae, and no lid lag. Oropharynx free of erythema and cobble stoning with moist mucosa. Neck: Supple with full range of motion. No jugular venous distension. No lymphadenopathy or thyromegaly. Cardiovascular: Regular rate and rhythm without murmurs, rubs, or gallops appreciated. Pulmonary: Clear to auscultation bilaterally without crackles, wheezes, or rhonchi. Normal respiratory effort with no use of accessory muscles. Abdomen: Soft, bowel sound present, nontender, nondistended. No hepatospl enomegaly or masses appreciated. Extremities: No clubbing, cyanosis, or edema. Skin: Normal temperature, turgor, and texture; no rash, ulcers, or subcutaneous nodules appreciated. Neurological: Cranial nerves grossly intact. Resting pill rolling tremor of left hand and arm. Masked facies. Psychiatric: Normal mood and affect. Alert and oriented to person, place, and time. Objective Labs Result Diagrams: 06/06/20 05:20 06/06/20 05:20 Labs: Laboratory Results - last 24 hr 06/06/20 06/06/20 05:20 05:20 WBC 7.6 RBC 3.16 L Hgb 9.7 L Hct 28.9 L MCV 91.4 MCH 30.8 MCHC 33.7 RDW 14.0 Plt Count 180 Neut % (Auto) 65.1 Lymph % (Auto) 19.1 L [place] % (Auto) 13.0 Eos % (Auto) 1.6 L Baso % (Auto) 1.2 Neut # (Auto) 5000 Lymph # (Auto) 1500 [place] # (Auto) 1000 H Eos # (Auto) 100 Baso # (Auto) 100 Sodium 137 Potassium 3.5 Chloride 106 Carbon Dioxide 29 BUN 10 Creatinine 0.85 Estimated GFR > 60.0 BUN/Creatinine Ratio 11.8 Glucose 103 Calcium 8.3 L Magnesium 1.9 PFSH Medical History Diverticulitis Essential hypertension History of prostate cancer Hyperlipidemia Parkinsons disease Surgical History History of cardiac catheterization History of prostate surgery Family History Mother Breast cancer Father Myocardial infarction Social History household members: spouse Smoking Status: Never smoker alcohol intake: current Discharge Plan Discharge Plan Patient Disposition: Home Provider Discharge Comment: You are being discharged home. You had a lower GI bleed of your colon that is likely due to bleeding from your diverticulosis. It was not actively bleeding at the time of your colonoscopy procedure. We recommend a fiber supplement such as metamucil to help prevent formation of more diverticula or any episodes of diverticulitis. You had a large polyp found in the colon which was biopsied. Please follow up with Dr. Arias in the next 3-4 weeks to discuss a plan for surveillance and removal of the polyp. Discharge orders & Medications Prescriptions: New aspirin 81 mg Tablet,Delayed Release (Dr/Ec) 81 mg PO DAILY Qty: 30 RF: 0 Continued atorvastatin 10 mg tablet 10 mg PO DAILY RF: 0 metoprolol succinate 100 mg tablet extended release 24 hr 100 mg PO DAILY RF: 0 levothyroxine 50 mcg tablet 50 mcg PO DAILY RF: 0 allopurinol 300 mg tablet 300 mg PO 3XW RF: 0 carbidopa-levodopa 25-100 mg tablet 1 tab PO TID RF: 0 Discontinued aspirin 81 mg Tablet 162 mg PO DAILY RF: 0 Follow up/Referrals: Jossie Arias MD [Physician] - (Please call [facility] to make a follow up appointment with Dr. Arias in the next 3-4 weeks to discuss the pathology res ults from the polyp found on your colonoscopy and appropriate steps for surveillance and removal of the polyp. ) Diet/Activity/Treatments Diet: Low-fat, Low-sodium and Low-cholesterol Activity: Activity as tolerated Visit Report/Discharge Packet Instructions: Gastrointestinal Bleeding Quality VTE Deep Vein Thrombosis/Pulmonary Embolism Present on Admission: No
[2020-06-06] MEDS: ASPIRIN EC 81 MG TABLET PO (09:20)
[2020-06-06] MEDS: METOPROLOL ER 50 MG TABLET 100 MG PO (09:20)
[2020-06-06] MEDS: CARBIDOPA-LEVODOPA 25/100 TABLET 1 EACH PO (09:20)
[2020-06-06] MEDS: allopurinoL 300 MG TABLET PO (09:20)
[2020-06-06] MEDS: SODIUM CHLORIDE 0.9% FLUSH 10 ML IV (09:20)
--- NOTE | 2020-06-06 10:45 | PC.NURSE ---
Patient is doing well, no bm at this time. He is up ambulating on his own and will be discharged to home around 1130.
--- NOTE | 2020-06-06 11:48 | CM.DPC ---
DCP: continued: Dr. Arias has ok'd pt for d/c to home and with followup at her clinic in 3-4 weeks. P: home: pt left about 1130.
[2020-06-06 14:25] LABS: TSH w/ Reflex to FT4 2.58 uIU/mL (0.47-4.68)
== END 2020-06-06 12:00 | disposition home or self-care (01) | DRG 378 ==
LOC: ED 22:06 → AC 06-04 00:19
PROVIDERS: Internal Medicine; Surgery; Admitting Provider Nurse Practitioner Family; Emergency Provider Emergency Medicine; Referring Provider Emergency Medicine; Visit Provider Nurse Practitioner Family
PROC: 0DJD8ZZ Inspection of Lower Intestinal Tract, Via Natural or Artificial Opening Endoscopic (ICD-10-PCS; CPT 45378; principal; 2020-06-05 12:15)
DX: K57.31 Diverticulosis of large intestine without perforation or abscess with bleeding (principal); D62 Acute posthemorrhagic anemia; K63.5 Polyp of colon; G20 Parkinson's disease; I10 Essential (primary) hypertension; E78.5 Hyperlipidemia, unspecified; I25.10 Atherosclerotic heart disease of native coronary artery without angina pectoris; M10.9 Gout, unspecified; E03.9 Hypothyroidism, unspecified; Z85.46 Personal history of malignant neoplasm of prostate; Z20.828 Contact with and (suspected) exposure to other viral communicable diseases
CPT/HCPCS: 36415; 45380; 80048; 80053; 83735; 84443; 85014; 85018; 85025; 85610; 86850; 86900; 86901; 87635; 99221; 99282; 99283

== ENCOUNTER → 2020-08-05 09:00 | Outpatient (CLI) | payer OTHER, SELFPAY ==
[2020-06-03 22:23] VITALS: BMI 29.1
[2020-08-05 10:19] LABS: COVID19 -Nasal RAPID Negative (Negative)
== END ==
PROVIDERS: Visit Provider Surgery
DX: Z20.822 Contact with and (suspected) exposure to COVID-19 (principal)
CPT/HCPCS: 87635; C9803

== ENCOUNTER 2020-08-06 06:54 | Day surgery (SDC) | payer OTHER, SELFPAY ==
[2020-06-03 22:23] VITALS: BMI 29.1
--- NOTE | 2020-08-06 | PATH_ITS ---
[facility] Accession Number: [id number] . 01 Material submitted: . colon - CECAL POLYP/IC VALVE X2 . 01 Clinical history: . SDC . 02 Diagnosis: Cecal Polyp/Ileocecal Valve x2: Multiple (approximately nine) portions of tubulovillous / tubular adenoma. Approximately two portions of serrated lesion, cannot completely exclude sessile serrated adenoma due to tangential tissue orientation. [facility] 08/11/2020 1233 Local . 02 Electronically signed: . Estefani Coello MD, Pathologist NPI- [id number] . 01 Gross description: . The specimen is received in formalin, labeled cecal polyp IC valve and consists of multiple mims-pink fragments of soft tissue, measuring 2.0 x 1.0 x 0.2 cm in aggregate. The specimen is filtered and entirely submitted in cassette A1. ([id number]) /[facility] 08/07/2020 1716 Local . 02 Pathologist provided ICD-10: D12.0, K63.5 . 02 CPT . 752912 Performed at: 01 [facility] [address], [place], [place] [id number] MD Stanley Johnson MD Phone: [phone] Performed at: 02 [facility] [address] [place], [place] [id number] MD Lillian Cordero MD Phone: [phone]
[2020-08-06 07:34] VITALS: BP 145/81; PULSE 95; RESP 15; TEMP 36.2; O2SAT 98; BMI 29.4
--- NOTE | 2020-08-06 07:48 | P.HP_ITS ---
History of Present Illness History of Present Illness Date Patient Seen: 08/06/20 Time Patient Seen: 07:49 Chief complaint: SDC Narrative: This is a 79 yo man with history of Parkinsons, HTN, HLD, diverticulosis, and diverticulitis, who was admitted to the hospital for GI bleed in early May. He had a colonoscopy on 06/05. He was found to have severe diverticulosis, without evidence of active bleeding, He was found to have a large polyp in the cecum which was biopsied but not entirely removed. His prep was poor, and so the possibility of missed polyps is high. The biopsy results are consistent with tubulovillous adenoma. The patient reports that sin ce his colonoscopy he has not had any further bleeding. He sometimes feels constipated and he wonders if this is due to his Parkinson's medications. He takes a small amount of Metamucil each day, and occasionally takes Dulcolax if he goes more than a day and a half without having a bowel movement. He reports having to sit on the toilet more than 2 minutes, and having to strain at times to have a BM. He occasionally has a pain in his left lower quadrant which is not associated with fevers, nausea, diarrhea, or having bowel movements. He says it is a shooting pain and usually passes within minutes. Interval change: The patient reports no changes since I last saw him in June. He saw his primary care doctor, who encouraged him to go ahead with this procedure without any further workup or treatment for medical risk. ROS: He reports reflux symptoms. He was taking Omeprazole, but he has stopped some time ago. Prior to that his symptoms were well controlled. He has never had an EGD. Thirteen system review is otherwise negative other than as mentioned below and in HPI. PE: GENERAL: Well groomed and cooperative. Appears stated age. Answers questions promptly and appropriately. Vital signs noted. HENT: Normocephalic, atraumatic. Hard of hearing; not wearing hearing aids because of his mask EYES: Conjunctiva pink, sclera white, no periorbital swelling. CARDIOVASCULAR: Regular rate. trace pedal edema. RESPIRATORY: Non-tachypneic, breathing comfortably on room air. GASTROINTESTINAL: Abdomen soft, rounded GENITALURINARY: No flank tenderness. MUSCULOSKELETAL: Equal tone and mass bilaterally. SKIN: Warm, dry, soft, appropriate color for ethnicity. No other lesions, rashes, or wounds. NEURO: Alert and Oriented X 3. Mild tremor; no other sensory deficits, or cogn itive issues. PSYCH: Appropriate affect and mood. Patient History Medical History Angina at rest Diverticulitis Essential hypertension GERD (gastroesophageal reflux disease) History of prostate cancer Hyperlipidemia DELMIS (obstructive sleep apnea) Parkinsons disease Surgical History History of cardiac catheterization History of prostate surgery Family & Social History Family History Mother Breast cancer Father Myocardial infarction Social History: household members spouse Tobacco & Substance use: Smoking Status Never smoker alcohol intake current alcohol intake frequency 0-2 drinks per day Substance Use Type does not use Meds Home Medications and Allergies Home Medications Medication Instructions Recorded Confirmed Type allopurinol 300 mg PO 3XW 06/03/20 08/06/20 History atorvastatin 10 mg PO DAILY 06/03/20 08/06/20 History carbidopa-levodopa 1 tab PO TID 06/03/20 08/06/20 History levothyroxine 50 mcg PO DAILY 06/03/20 08/06/20 History metoprolol succinate 100 mg PO DAILY 06/03/20 08/06/20 History aspirin 81 mg PO DAILY #30 tab 06/06/20 08/06/20 Rx prednisone 2.5 mg PO Q3D 08/06/20 08/06/20 History Allergies Allergy/AdvReac Type Severity Reaction Status Date / Time epinephrine [From ADRENALIN] Allergy Unknown Verified 07/01/20 10:21 meperidine [From DEMEROL] Allergy Unknown Verified 07/01/20 10:21 Penicillins [PENICILLINS] Allergy Unknown Verified 07/01/20 10:21 Assessment & Plan Assessment and plan (1) Lower gastrointestinal hemorrhage: Status: Acute (2) Diverticulosis: Status: Acute (3) Tubulovillous adenoma of colon: Status: Acute (4) Constipation: Qualifiers: Constipation type: unspecified constipation type Qualified Code(s): K59.00 - Constipation, unspecified Status: Acute (5) Hyperlipidemia: Qualifiers: Hyperlipidemia type: unspecified Qualified Code(s): E78.5 - Hyperlipidemia, unspecified Status: Chronic (6) Parkinsons disease: Status: Chronic (7) Essential hypertension: Status: Chronic Assessment & Plan narrative: colon - CECAL POLYP . 01 Clinical history: . BLEEDING ANAL . 02 Diagnosis: Cecum, Polyp, Biopsy: Tubulovillous adenoma. No evidence of malignancy or high-grade dysplasia. [facility] 06/11/2020 1543 Local . 02 Comment: As part of routine quality systems engineer, Dr. Ibarra also reviewed this case and agrees with the diagnosis. Additional deeper levels were examined. . . 02 Electronically signed: . Lillian Cordero MD, Pathologist NPI- [id number] . 01 Gross description: . The specimen is received in formalin, labeled cecal polyp and consists of two mims fragments of soft tissue, measuring 1.5 x 1.0 x 0.5 cm in aggregate. The tissue fragments are bisected and the specimen is entirely submitted in cassette A1. ([id number]) /[facility] 06/06/2020 1804 Local . 02 Pathologist provided ICD-10: D12.0 . 02 CPT . 416507 Performed at: 01 [facility] [address] [id number] MD Stanley Johnson MD Phone: [phone] Performed at: [facility] [address] [place], [place] [id number] MD Lillian Cordero MD Phone: [phone] During his office visit, I explained to the patient and his that it does take 5-10 years for polyp to turn into cancer, but it is possible though there is cancer add deeper levels of the polyp that we did not get on the biopsy. Either way I think it is better to not delay a long time before doing a follow- up colonoscopy, although I think 3-6 months would be fine. There are likely many more polyps that I was not able to see because of the poor prep, but they are likely small. I explained to the patient his polyp is at an odd angle in the cecum, it may be difficult to reach. I offered him the option of being referred to advanced endoscopy such as one of the gastroenterologists who come up from [place], but he said he would rather have me try to do it if I am able. I told him that if I am not able to successfully get out the polyp he may either need surgical removal of that part of the colon, or advanced endoscopy referral for removing the polyp, which would mean another bowel prep another procedure. He says he prefers to go ahead and have me do it here for now. Plan: Colonoscopy under MAC due to medical fragility putting him at high risk for cardiac or respiratory complication with conscious sedation COVID-19 COVID-19 status: Negative Result date/Date tested (Pos, Neg/Pending): 08/05/20 Time Spent With Patient Time with patient: 15-24 minutes Quality VTE Deep Vein Thrombosis/Pulmonary Embolism Present on Admission: No
[2020-08-06] MEDS: LACTATED RINGERS 1,000 ML 42 ML IV (07:53)
--- NOTE | 2020-08-06 09:22 | P.OP.ENDO_ITS ---
Operative Date/Time/Diagnoses Date of procedure: 08/06/20 Time of procedure: 09:22 Pre-op diagnosis: History of GI bleed, multiple polyps, large cecal polyp Post-op diagnosis: same (Large polyp right on top of the ileocecal valve) Procedure & Clinicians Study performed: Colonoscopy Piecemeal endoscopic resection of large cecal polyp Same procedure as scheduled: Yes Indications: Large cecal polyp. Anesthesia was done by the anesthesiologist due the patient's medical fragility. Surgeon: Jossie Arias Procedure Notes SCOAP/Timeout: Performed Procedure in detail: The patient was brought to the room and placed in left la teral decubitus position with all bony prominences padded. A time-out was performed and then the patient was given monitored anesthesia care, and put under sedation by the anesthesiologist. Once adequately sedated, the procedure was begun. A rectal exam was performed revealing no abnormalities. The colonoscope was then introduced to the rectum and advanced to the cecum in the usual fashion. The cecum was identified by the appendiceal orifice, the mucosal tri-fold, and the ileocecal valve. A large flat polyp was seen right on the top of the ileocecal valve. The polyp was very large and at and angle that made visualization difficult, as it overlapped the ileocecal valve and was tucked behind a large fold. It would not lift up well because of its position over the ileocecal valve. It was removed piecemeal, and the base was cauterized. There was good hemostasis, and no indication of perforation. The scope was then retracted while rotating side to side and examining each mucosal fold. Any deep diverticula, and false passages were seen in the left side of the colon, but no evidence of active diverticulitis or stigmata of recent bleeding in the area of diverticulosis. At the conclusion of the procedure retroflexion was performed and small grade 1-2 internal hemorrhoids without stigmata of bleeding were seen. The scope was then withdrawn from the rectum the procedure was concluded. The patient tolerated the procedure well and was transferred to the PACU in stable condition. Scope withdrawal time: 45 Findings: polyp (Large polyp on top of the ileocecal valve removed piecemeal) Specimen(s): other (Cecal polyp) Complications: none Impression: This is a large flat polyp which will require continual surveillance, or ileocecal resection. Once the pathology has returned, I will discuss options with the patient and his family. Post-procedure Recommendations: Will call with biopsy results Follow up: weeks Disposition: PACU
[2020-08-06 09:23] VITALS: BP 118/65; PULSE 64; RESP 12; TEMP 36.3; O2SAT 95
[2020-08-06 09:29] VITALS: BP 134/69; PULSE 66; RESP 14; O2SAT 96
[2020-08-06 09:33] VITALS: BP 117/80; PULSE 66; RESP 14; O2SAT 97
[2020-08-06 09:38] VITALS: BP 113/58; PULSE 64; RESP 14; O2SAT 97
[2020-08-06 09:44] VITALS: BP 132/81; PULSE 64; RESP 14; TEMP 36; O2SAT 97
== END 2020-08-06 09:58 | disposition home or self-care (01) ==
PROVIDERS: PCP Family Medicine; Referring Provider Surgery; Visit Provider Surgery
PROC: 0DJD8ZZ Inspection of Lower Intestinal Tract, Via Natural or Artificial Opening Endoscopic (ICD-10-PCS; CPT 45378; principal; 2020-08-06 08:15)
DX: D12.0 Benign neoplasm of cecum (principal); G20 Parkinson's disease; I10 Essential (primary) hypertension; E78.5 Hyperlipidemia, unspecified; K57.30 Diverticulosis of large intestine without perforation or abscess without bleeding; K59.00 Constipation, unspecified; K64.0 First degree hemorrhoids
CPT/HCPCS: 45384; 99152; 99153; J2704

== ENCOUNTER → 2020-10-17 10:02 | Outpatient (CLI) | payer OTHER, SELFPAY ==
[2020-06-03 22:23] VITALS: BMI 29.1
[2020-10-17 11:28] LABS: COVID19 -Nasal RAPID Negative (Negative)
== END ==
PROVIDERS: PCP Family Medicine; Visit Provider Surgery
DX: Z20.822 Contact with and (suspected) exposure to COVID-19 (principal)
CPT/HCPCS: 87635

== ENCOUNTER 2020-10-20 09:18 | Inpatient (IN) | payer OTHER, SELFPAY ==
[2020-06-03 22:23] VITALS: BMI 29.1
[2020-10-17 09:07] VITALS: BMI 28.8
--- NOTE | 2020-10-17 10:03 | DIET.PN ---
Dietary Progress Note RD Note: Provided ERAS education to pt with booklet and drink. Pt has had 4# intentional weight loss in past 3mo (non-severe). Pt has no food allergies or avoidances. All questions answered. RD to f/u c pt post-op.
[2020-10-20] VITALS (27 sets, daily range): BP systolic 100–164; BP diastolic 55–90; PULSE 70–89; RESP 5–18; TEMP 35.9–36.6; O2SAT 92–98; BMI 28.7
--- NOTE | 2020-10-20 | PATH_ITS ---
[facility] Accession Number: [id number] . 01 Material submitted: . colon - RIGHT COLON . 02 Diagnosis: Right Colon, Segmental Resection: 1. Appendiceal mucinous adenoma. 2. Tubulovillous adenoma involving ileocecal valve. 3. Proximal and distal margins are negative for dysplasia. 4. No evidence of extra-appendiceal mucin, high-grade dysplasia or invasive carcinoma. [facility] 10/24/2020 1537 Local . 02 Comment: . . 02 Electronically signed: . Lillian Cordero MD, Pathologist NPI- [id number] . 01 Gross description: . The specimen is received in formalin, labeled right colon and consists of a 4.0 cm in length by 2.0 cm in diameter portion of terminal ileum and attached cecum and ascending colon measuring 11.0 cm in length by 5.0 cm in diameter. The proximal and distal margins are stapled. The serosa is mims-pink and smooth, and there is an abundant amount of attached mims-yellow lobulated mesenteric adipose tissue. The normal-appearing attached appendix measures 10.5 cm in length by 0.5 cm in diameter and displays a mims-pink smooth serosa. Sectioning reveals a mims mucosa and a lumen measuring 0.4 cm in diameter, which contains a clear mucoid material. Opening reveals a 2.6 x 2.5 cm mims-pink nodular lesion at the ileocecal valve, located 4.2 cm from the proximal margin and 8.5 cm from the distal margin. Sectioning reveals no extension into the muscularis propria. The remaining mucosa is mims-pink with normal mucosal folds and the wall thickness averages 0.2 cm. Sectioning through the attached adipose tissue reveals four lymph nodes ranging from 0.3-0.5 cm. Hydraulic Press Servicer sections are submitted. . A1: proximal margin, special service representative perpendicular sections (black). A2: distal margin, special service representative perpendicular sections (black). A3-A7: nodular lesion at ileocecal valve, entirely submitted. A8: special service representative cecum and ascending colon. A9: four lymph nodes. A10-A15: appendix, serially sectioned and entirely submitted. A16-A20: special service representative adipose tissue. ([id number]) /[facility] 10/22/2020 1149 Local . 02 Pathologist provided ICD-10: D12.0, D12.1 . 02 CPT . 805278 Performed at: 01 [facility] [address] [facility], [place], [place] [id number] MD Stanley Johnson MD Phone: [phone] Performed at: [facility] [address] [place], [place] [id number] MD Lillian Cordero MD Phone: [phone]
[2020-10-20] MEDS: LACTATED RINGERS 1,000 ML 42 ML IV ×2 (10:00→12:33)
--- NOTE | 2020-10-20 10:05 | P.HP_ITS ---
History of Present Illness History of Present Illness Date Patient Seen: 10/20/20 Time Patient Seen: 10:05 Chief complaint: Cecal mass Narrative: This patient is here for right hemicolectomy. To review, this is a 80-year-old man who I originally met back in May when he came into the hospital with a GI bleed. I did a colonoscopy at that time, and no specific bleeding source was found, although our greatest suspicion was that it was from his diverticulosis. He was also found to have a large polyp in the cecum, which I could not entirely remove at the time. When I saw him back in the office I gave him the option of referral to advanced endoscopy to try and have them remove it, or for me to try again. He opted for me to go ahead and try again. On my 2nd try, we had much better approach and much better bowel prep, but because of the position of the polyp it was very difficult to remove the entire thing. It sits right on top of the ileocecal valve, and even with saline injection underneath mucosa was not able to lift off of the valve enough to remove the entire polyp. I removed several significant pieces of the polyp, but a significant portion of the polyp remains, including the base, which has a high potential of being more advanced than the more superficial pieces that were removed. 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 The patient feels fine since his procedure, and denies any particular complaints. He has not had any more episodes of bleeding since May. Interval events: The patient has now seen his primary doctor, and discussed his options (repeat endoscopic attempt by GI vs surgical right hemicolectomy). The patient has decided he would like to go ahead with hemicolectomy. He denies any new bleeding. His primary doctor met with him on 08/27 and gave him medical approval to go ahead with surgery. ROS: Thirteen system review is otherwise negative other than as mentioned below and in HPI. PE: GENERAL: Well groomed and cooperative. Appears stated age. Answers questions promptly and appropriately. Vital signs noted. HENT: Normocephalic, atraumatic. Hearing intact. EYES: Conjunctiva pink, sclera white, no periorbital swelling. CARDIOVASCULAR: Regular rate. No pedal edema. RESPIRATORY: Non-tachypneic, breathing comfortably on room air. GASTROINTESTINAL: Abdomen soft and non-distended; rounded, nontender, well- healed lower midline incision from his prostate surgery GENITALURINARY: No flank tenderness. MUSCULOSKELETAL: Equal tone and mass bilaterally. SKIN: Warm, dry, soft, appropriate color for ethnicity. No other lesions, rashes, or wounds. NEURO: Alert and Oriented X 3. Mild chorea consistent with his treated Parkinson's, or cognitive issues. PSYCH: Appropriate affect and mood. Patient History Medical History Angina at rest Diverticulitis Easy bruisability Essential hypertension Fibromyalgia GERD (gastroesophageal reflux disease) History of prostate cancer Hyperlipidemia DELMIS (obstructive sleep apnea) Parkinsons disease Surgical History History of cardiac catheterization History of prostate surgery Family & Social History Family History Mother Breast cancer Father Myocardial infarction Social History: household members spouse Tobacco & Substance use: Smoking Status Never smoker alcohol intake current alcohol intake frequency 0-2 drinks per day Substance Use Type does not use Meds Home Medications and Allergies Home Medications Medication Instructions Recorded Confirmed Type allopurinol 300 mg PO Q OTHER DAY 06/03/20 10/20/20 History atorvastatin 10 mg PO DAILY 06/03/20 10/20/20 History carbidopa-levodopa 1 tab PO TID 06/03/20 10/20/20 History levothyroxine 50 mcg PO DAILY 06/03/20 10/20/20 History metoprolol succinate 100 mg PO DAILY 06/03/20 10/20/20 History aspirin 81 mg PO DAILY #30 tab 06/06/20 10/20/20 Rx prednisone 2.5 mg PO Q OTHER DAY 08/06/20 10/20/20 History erythromycin 500 mg tablet 1,000 mg PO TID #6 tab 10/14/20 10/20/20 Rx magnesium citrate 296 ml PO .per instructions #592 ml 10/14/20 10/20/20 Rx neomycin 500 mg tablet 1 g PO TID #6 tab 10/14/20 10/20/20 Rx Allergies Allergy/AdvReac Type Severity Reaction Status Date / Time meperidine [From DEMEROL] Allergy Severe Anaphylaxis Verified 10/20/20 09:49 Penicillins [PENICILLINS] Allergy Severe Anaphylaxis Verified 10/20/20 09:49 Assessment & Plan Assessment & Plan narrative: This is a 80 yo man with an advanced polyp in the cecum overlying the ileocecal valve which could not be removed endoscopically. The patient has elected for definitive surgery rather than surveillance or additional tries by another endoscopist. We discussed in detail the risks of surgery including bleeding, infection, damage to nearby structures, anastomotic leak, need for additional surgeries, and the rare/remote chance of needing an ostomy. I explained his pre op bowel prep and expected 3-5 day hospital stay with 4-6 weeks recovery at home. We also discussed his cardiac history. He has had 2 cardiac catheterizations for chest pain, but has not had any stent placements, and has not had an AK. He says that his chest pain was thought to be stress related, and not primary cardiac. The patient ultimately stated that he would like to have surgical intervention and that his primary doctor was in agreement with this plan. Plan: Proceed to OR for right hemicolectomy COVID-19 COVID-19 status: Negative Result date/Date tested (Pos, Neg/Pending): 10/17/20 Quality VTE Deep Vein Thrombosis/Pulmonary Embolism Present on Admission: No
[2020-10-20] MEDS: metroNIDAZOLE 500 MG/100 ML PIGGYBACK 100 MG IV (12:15)
[2020-10-20] MEDS: levoFLOXacin 500 MG/100 ML PIGGYBACK 100 MG IV (12:25)
--- NOTE | 2020-10-20 12:42 | SUR.OPER ---
Supine on padded OR bed, head on pillow, arms padded with gel pads and tucked at sides with draw sheet, legs uncrossed, safety belt at thigh, tape over blanket over lower legs.
[2020-10-20] MEDS: BUPIVACAINE LIPOSOME 266 MG/20 ML VIAL INJ (13:07)
[2020-10-20] MEDS: BUPIVACAINE 0.25% W/ EPI (PF) 10 ML VIAL 30 ML INJ ×2 (13:07→15:06)
--- NOTE | 2020-10-20 15:32 | PM.OP.1 ---
Operative Date/Time/Diagnoses Date of procedure: 10/20/20 Time of procedure: 15:33 Pre-op diagnosis: Large tubulovillous adenoma of ileocecal valve Post-op diagnosis: same Procedure & Clinicians Procedure: Laparoscopic right hemicolectomy Same procedure as scheduled: Yes Indications: Large tubulovillous adenoma polyp, failed endoscopic removal Surgeon: Jossie Arias Click Yes if Unassisted: Yes Anesthesia Type: General Operative Notes Findings: Large polyp covering the IC valve Specimen(s): other (Right colon and terminal ileum) Estimated Blood Loss (mL): 25 Blood products transfused: none Procedure in detail: The patient was brought into the operating room and placed supine on the OR table. Sequential compression devices were placed on both legs and turned on. Appropriate perioperative antibiotics were given prior to the start of surgery. General anesthesia was induced the patient was intubated. The patient was positioned supine with both arms tucked. A novak catheter was placed in sterile fashion in the bladder. The abdomen was prepped and draped in sterile fashion. Surgical time-out was conducted. Local anesthetic was injected under the skin just superior to the umbilicus and a 5 mm vertical incision was made at this site. The umbilical stalk was grasped with a Ronald and elevated. A Veress needle was passed through the fascia into proper position. The position was tested with a saline drop test which was appropriate for intra-abdominal Veress needle placement. The abdomen was then insufflated in the usual fashion. Once insufflated to 15 mm Hg the Veress needle was removed and a 5 mm optical trocar was placed under direct vision using a 5 mm 30 degree scope. Once the camera was inside the abdomen I took a look around. There was no injury from port placement. Two additional ports were placed in a similar fashion in the suprapubic and left mid abdomen. Dissection was begun at the cecum. The appendix was grasped and elevated. The cecum and terminal ileum were identified. There was a firm in thickened area of inflammatory tissue in the retroperitoneum just beneath the cecum, overlying the ureter and iliac vessels. Careful dissection was undertaken to mobilize the cecum and right colon. The white line of Toldt was followed superiorly towards the hepatic flexure, and the cecum and right colon were gradually rotated medially. Once we rounded the hepatic flexure, I took down the omentum over to approximately the mid transverse colon. On rotating the colon medially I was able to see the C-loop of the duodenum. Once the hepatic flexure and right colon were freed, came back down to the cecum to re-evaluate the thickened inflammatory area. This is likely secondary to the procedures that the patient already had for attempted endoscopic resection of his tubulovillous adenoma. Careful dissection was undertaken in order to entirely free the cecum and terminal ileum for resection. There were really no normal tissue planes in this region. All were obliterated from the inflammatory changes. At this point I placed a hand port in the upper midline. Local anesthetic was injected in the skin, and a 7cm incision was made with a 10 blade at this site. Dissection was carried down to the fascia. Once the fascia was open a Gelport handport was placed. I was able to use my hand to help to complete the dissection of the inflammatory adhesions of the cecum. Once the dissection was completed, I mobilized the ileum using [place] Ligasure. Once the colon and ileum were mobilized, I brought the entire right colon up through the hand port. I ensured proper locations for division of the bowel for proper oncologic dissection. I then divided the mesentery using Ligasure, as well as clamps and ties on the ileocolic artery and vein. Branches to the ileum were preserved with palpable arterial pulse going to the ileum. I then divided the bowel using blue load YOJANA stapler, 10 cm proximal to the ileocecal valve and at the hepatic flexure. Good arterial supply was palpated going to the remaining colon and ileum. Side by side stapled anastomosis was made using YOJANA blue load stapler. The ends were then oversewn in 2 layers using running 3-0 PDS and then 3-0 silk lembert sutures over that. The anastomosis was then tested by occluding the ileum and intraluminal gas was squeezed across the anastomosis from the transverse colon with no bubbling coming from the anastomosis, indicating a negative leak test. The bowel was then placed back inside, and the Gelport lid was placed back on. The abdomen was reinsufflated. The anastomosis was in good position, and there was good hemostasis in the dissection area. The fascial incision and port sites were then injected with an additional 30mL of 0.25% Marcaine with epinephrine for a total of 60 mL for the case. 20mL of Exparel was injected into the peritoneum and fascia. I then closed the fascia with running 0 PDS, 0 Vicryl [id number], and closed the skin with skin man. The remaining 5mm port sites were also closed with man. The wounds were dressed with 4x4's and tape, with bandaids on the port sites. This concluded the procedure. At this point the needle sponge and instrument counts were correct. The colon was passed off the table for pathology. Patient was awakened from anesthesia and extubated. He was transferred to the postanesthesia care unit in stable condition. Complications: none Post-operative Condition: stable Disposition: PACU
[2020-10-20] MEDS: fentaNYL 100 MCG/2 ML INJ IV ×2 (16:09→16:17)
--- NOTE | 2020-10-20 16:33 | SUR.PHASEI ---
Report to Lm Montemayor
[2020-10-20 16:48] LABS: Blood Urea Nitrogen 16 mg/dL (9-20); Calcium 8.7 mg/dL (8.4-10.2); Carbon Dioxide 18 mmol/L (22-32); Chloride 109 mmol/L (98-107); Estimated Glomerular Filt Rate > 60.0 mL/min (>60); Glucose 135 mg/dL (80-110); HEMOLYSIS < 15 (0-50); Magnesium 2.1 mg/dL (1.6-2.3); Sodium 139 mmol/L (137-145)
--- NOTE | 2020-10-20 17:19 | SUR.PHASEI ---
Pt transfered to 224. Report to Teetee MONTEMAYOR at bedside. Lm Montemayor preceptor for Nasrin MONTEMAYOR
[2020-10-20] MEDS: SODIUM CHLORIDE 0.9% 1,000 ML 80 ML IV (17:30)
[2020-10-20] MEDS: CARBIDOPA-LEVODOPA 25/100 TABLET 1 EACH PO (18:22)
[2020-10-20] MEDS: ACETAMINOPHEN 325 MG TABLET 650 MG PO (18:22)
[2020-10-21] VITALS (7 sets, daily range): BP systolic 106–129; BP diastolic 61–81; PULSE 67–79; RESP 14–18; TEMP 36.2–37.1; O2SAT 95–99
[2020-10-21] MEDS: ACETAMINOPHEN 325 MG TABLET 650 MG PO ×5 (00:01→23:24)
--- NOTE | 2020-10-21 01:11 | PC.NURSE ---
Dr. Arias paged re: urine output approx 900ml from [id number] and unable to discern cause. No new orders received at this time. Will continue to monitor uop and page again if urine continues at approx 1L/hr. Will watch for chemistry changes on 0400 labs.
[2020-10-21] MEDS: OXYCODONE IR 5 MG TABLET PO (02:27)
[2020-10-21 05:27] LABS: Add Manual Diff / Slide Review NO; Basophils Absolute Auto 0 /uL (0-100); Basophils Percent Auto 0.4 % (0-2); Eosinophils Absolute Auto 0 /uL (0-450); Hematocrit 41.7 % (41-53); Hemoglobin 13.5 g/dL (13.5-17.5); Lymphocytes Absolute Auto 600 /uL (1100-4500); Lymphocytes Percent Auto 4.8 % (25-40); Mean Corpuscular HGB Conc 32.4 % (30-36); Mean Corpuscular Hemoglobin 28.5 PG (26-34); Mean Corpuscular Volume 88.1 fL (80-100); Monocytes Absolute Auto 600 /uL (0-900); Monocytes Percent Auto 5.3 % (3-14); Neutrophils Absolute Auto 10500 /uL (1500-7000); Neutrophils Percent Auto 89.5 % (50-75); Platelet Count 230 X10^3/uL (150-400); Red Blood Cell Count 4.74 X10^6/uL (4.5-5.9); Red Cell Distribution Width 15.6 % (11.6-14.8); White Blood Cell Count 11.7 X10^3/uL (4.5-11.0)
[2020-10-21 05:34] LABS: BUN Creatinine Ratio 12.6 (6-22); Blood Urea Nitrogen 12 mg/dL (9-20); Calcium 8.8 mg/dL (8.4-10.2); Carbon Dioxide 22 mmol/L (22-32); Chloride 108 mmol/L (98-107); Estimated Glomerular Filt Rate > 60.0 mL/min (>60); Glucose 138 mg/dL (80-110); HEMOLYSIS < 15 (0-50); Magnesium 2.2 mg/dL (1.6-2.3); Phosphorous 2.8 mg/dL (2.3-3.7); Potassium 4.3 mmol/L (3.4-5.1); Sodium 139 mmol/L (137-145)
[2020-10-21] MEDS: SODIUM CHLORIDE 0.9% 1,000 ML 80 ML IV (05:40)
[2020-10-21] MEDS: HEPARIN 5,000 UNIT/ML VIAL 5000 UNIT SUBCUT ×2 (09:49→20:16)
[2020-10-21] MEDS: CARBIDOPA-LEVODOPA 25/100 TABLET 1 EACH PO ×3 (09:49→17:56)
[2020-10-21] MEDS: METOPROLOL ER 50 MG TABLET 100 MG PO (09:50)
--- NOTE | 2020-10-21 09:57 | PT.IIE ---
Current Diagnoses Benign neoplasm of colon, unspecified (10/20/20) Parkinson's disease (10/20/20) Essential (primary) hypertension (10/20/20) Diverticulosis of intestine, part unspecified, without perforation or abscess without bleeding (10/20/20) Other specified diseases of intestine (10/20/20) Personal history of other diseases of the digestive system (10/20/20) Acquired absence of other specified parts of digestive tract (10/20/20) Surgery Performed Operation Date: 10/20/20 11:15 Actual Procedures p Lap. Poss. Open Hemicolectomy(Right) - Jossie Arias MD Surgical History (Last Reviewed 10/21/20 @ 10:13 by Jossie Arias MD) History of cardiac catheterization History of prostate surgery Medical History (Last Reviewed 10/21/20 @ 10:13 by Jossie Arias MD) Angina at rest Diverticulitis Easy bruisability Essential hypertension Fibromyalgia GERD (gastroesophageal reflux disease) History of prostate cancer Hyperlipidemia DELMIS (obstructive sleep apnea) Parkinsons disease Physical Therapy Inpatient Evaluation/Re-Eval M1 PT/OT-IP Prior Functional Status Start: 10/21/20 13:08 Freq: NEEDED Status: Active Protocol: Document 10/21/20 09:57 AB (Rec: 10/21/20 13:19 AB [id number]) Medical Review Prior Functional Status Medical History Reviewed Yes Communication able to make needs known Mobility and Gait pt stated that he is independent with all mobilities and ambulation without AD Social History Household Members spouse Living Arrangements House Number of Floors (Floors) One Floor Number of Stairs To Enter/Railing? no steps to enter Home Environment Standard Height Toilet,Walk in Shower Home Equipment Shower Seat without Backrest, Hand Held Shower,Grab Bars Near Toilet,Grab Bars In Shower M2 PT-IP Current Condition Start: 10/21/20 13:08 Freq: NEEDED Status: Active Protocol: Document 10/21/20 09:57 AB (Rec: 10/21/20 13:19 AB [id number]) Physical Therapy Current Condition Current Condition Evaluation Date 10/21/20 Treatment Diagnosis s/p R lap hemicolectomy; difficulty in walking Onset Date 10/20/20 Precautions Abdominal Surgery Precautions Log Roll,Lifting Restrictions, Gait Belt above Incisional Area M3 PT-IP Subjective Start: 10/21/20 13:08 Freq: NEEDED Status: Active Protocol: Document 10/21/20 09:57 AB (Rec: 10/21/20 13:19 AB [id number]) Subjective Physical Therapy Visit Type Type Initial Evaluation Visit Start Time 09:57 Visit Stop Time 10:17 Total Visit Minutes 20 Number of CAR TOP BOLTER Visits 0 Physical Therapy Visit Comments Patient Comments pt is agreeable to do PT Therapy Pain Assessment Pain Present Pain Present Denied Pain M4 PT-IP Mobility and Gait Start: 10/21/20 13:08 Freq: NEEDED Status: Active Protocol: Document 10/21/20 09:57 AB (Rec: 10/21/20 13:19 AB [id number]) PT-Bed Mobility Assessment Rolling Type of Rolling Log Rolling Level of Assist Standby Assistance Supine to Sit Supine to Sit Standby Assistance Sit to Supine Sit to Supine Standby Assistance PT-Transfer Assessment Sit to and From Stand Sit to and from Stand Standby Assistance Equipment Transfer Assistive Device None,Gait Belt Orthotic/Prosthetic Devices or Brace: No Transfers Transfer Destination Chair Transfer Technique ambulated without AD Transfer Ability Level of Assist Contact Guard Assistance,1 Person Assistance,Use of Upper Extremities Comments Mobility Comments pt is sitting on EOB. agreed to do PT. completed sit to stand SBA and ambulated in room without AD CGA. agreed to ambulate in the hallway and completed 125 ft without AD CGA. presents with dragging gait on LLE. pt stated that he has PD and has been off his medication for the sx. ambulated back to his room CGA and completed bed mobility sit<>supine SBA log roll. agreed to sit up on chair and transferrred from bed to chair without AD CGA. positioned on chair. call light and table placed within reach. Gait Assessment Gait Gait Assistance Required: Contact Guard Assist Distance (Feet) 125 Assistive Devices Assistive Device None,Gait Belt Orthotic/Prosthetic Devices or Brace: No Gait Deviations General Gait Pattern Decreased Stride Length, Decreased Feet Clearance Factors Limiting Gait Function Factors Limiting Gait Function Decreased Activity Tolerance, Decreased Strength,Poor Balance Comments Gait Comments pls refer to mobility section for details PT-Balance Assessment Sitting Balance and Reactions Static Sitting Balance Ability Good Dynamic Sitting Balance Ability Good Standing Balance and Reactions Static Standing Balance Ability Fair Dynamic Standing Balance Ability Fair Device Used without AD M5 PT-IP Objective Assessments Start: 10/21/20 13:08 Freq: NEEDED Status: Active Protocol: Document 10/21/20 09:57 AB (Rec: 10/21/20 13:19 AB [email or web address]) Orientation Orientation/Cognition Level of Alertness Alert Orientation Name,Place,Situation Language Function Ability No Deficits Noted Safety Awareness Decreased Safety Awareness Gross Range of Motion Lower Extremity ROM Assessment Within Functional Limits Strength Lower Extremity Strength Hip 4-/5 Knee 4-/5 Muscle Tone Comments Muscle Tone Comments has slight RUE tremors M6 PT-IP Treatment Start: 10/21/20 13:08 Freq: NEEDED Status: Active Protocol: Document 10/21/20 09:57 AB (Rec: 10/21/20 13:19 AB [email or web address]) Physical Therapy Treatment Education Education Provided Precautions,Safety M7 PT-IP Assessment and Plan Start: 10/21/20 13:08 Freq: NEEDED Status: Active Protocol: Document 10/21/20 09:57 AB (Rec: 10/21/20 13:19 AB [email or web address]) PT Summary Assessment and Plan Potential Rehabilitation Potential Good Status of Condition at Evaluation Stable Summary Impairments Pain,ROM,Strength,Balance, Coordination,Sensation,Tone, Cognition,Bed Mobility, Transfers,Gait,Activity Tolerance Assessment Summary pt requiring SBA to CGA with mobility without AD. pt presents with decrease LLE elevation during ambulation and pt stated that he has been off his PD medication for the surgery affecting his LE. will continue to assess progress. pt plans to go home with spouse to assist him. Goals Bed Mobility Goal Independent Transfer Goal Independent Gait Goal Independent Gait Distance 150 Days to Meet Goals 5 Frequency of Treatment Frequency Of Treatment Once a Day Treatment Plan Physical Therapy Treatment Plan Bed Mobility Training,Transfer Training,Gait Training, Therapeutic Exercise,Balance Retraining,Post Op Education, Discharge Planning,Hot or Cold Pack,Neuromuscular Re-ed, Coordination Retraining,Manual Therapy Precautions Abdominal Surgery Precautions Log Roll,Lifting Restrictions, Gait Belt above Incisional Area Recommendations To Nursing Amount of Assist Needed 1 Person Assist Discharge Recommendations PT Discharge Recommendations Home with Assistance Transportation Needs at Discharge Private Vehicle
--- NOTE | 2020-10-21 10:09 | P.PN_ITS ---
Subjective Subjective Date Patient Seen: 10/21/20 Time Patient Seen: 10:10 Interval history: No acute events overnight. Pt had some pain in his hips during the night and took an oxycodone for that. Denies significant pain the in the abdomen, denies nausea. Tolerating clears PO. Denies flatus or BM. Reports he is pulling 3000 on IS. Exam Vital Signs (past 8 hours): - 10/21/20 05:06 10/21/20 08:00 Temperature 97.2 F L 98.1 F Pulse Rate 68 73 Respiratory Rate 18 15 Blood Pressure 125/77 129/81 Pulse Oximetry 97 97 Oxygen Delivery Method Nasal Cannula Oxygen Flow Rate 2 Narrative Exam Narrative: GENERAL: Alert, comfortable. Appears stated age. Answers questions promptly and appropriately. Vital signs noted. HENT: Normocephalic, atraumatic. Hearing intact. EYES: Conjunctiva pink, sclera white, no periorbital swelling. CARDIOVASCULAR: Regular rate. No pedal edema. RESPIRATORY: Non-tachypneic, breathing comfortably on room air. GASTROINTESTINAL: Abdomen soft, rounded, dressings with serosanguinous staining on the gauze; appropriate for POD#1 MUSCULOSKELETAL: Equal tone and mass bilaterally. SKIN: Warm, dry, soft, appropriate color for ethnicity. No other lesions, rashes, or wounds. NEURO: Alert and Oriented X 3. Baseline tremor noted. No other gross sensory d eficits, or cognitive issues. PSYCH: Appropriate affect and mood. Objective Labs Result Diagrams: 10/21/20 04:45 10/21/20 04:45 Labs: Laboratory Results - last 24 hr 10/20/20 10/20/20 10/21/20 16:14 16:14 04:45 WBC 11.7 H RBC 4.74 Hgb 13.5 Hct 41.7 MCV 88.1 MCH 28.5 MCHC 32.4 RDW 15.6 H Plt Count 230 Neut % (Auto) 89.5 H Lymph % (Auto) 4.8 L [place] % (Auto) 5.3 Eos % (Auto) 0.0 L Baso % (Auto) 0.4 Neut # (Auto) 85188 H Lymph # (Auto) 600 L [place] # (Auto) 600 Eos # (Auto) 0 Baso # (Auto) 0 Sodium 139 Potassium 4.0 Chloride 109 H Carbon Dioxide 18 L BUN 16 Creatinine 1.00 Estimated GFR > 60.0 BUN/Creatinine Ratio 16.0 Glucose 135 H Calcium 8.7 Phosphorus Magnesium 2.1 10/21/20 04:45 WBC RBC Hgb Hct MCV MCH MCHC RDW Plt Count Neut % (Auto) Lymph % (Auto) [place] % (Auto) Eos % (Auto) Baso % (Auto) Neut # (Auto) Lymph # (Auto) [place] # (Auto) Eos # (Auto) Baso # (Auto) Sodium 139 Potassium 4.3 Chloride 108 H Carbon Dioxide 22 BUN 12 Creatinine 0.95 Estimated GFR > 60.0 BUN/Creatinine Ratio 12.6 Glucose 138 H Calcium 8.8 Phosphorus 2.8 Magnesium 2.2 PFSH Medical History Angina at rest Diverticulitis Easy bruisability Essential hypertension Fibromyalgia GERD (gastroesophageal reflux disease) History of prostate cancer Hyperlipidemia DELMIS (obstructive sleep apnea) Parkinsons disease Surgical History History of cardiac catheterization History of prostate surgery Family History Mother Breast cancer Father Myocardial infarction Social History household members: spouse Smoking Status: Never smoker alcohol intake: current Assessment & Plan Assessment and plan (1) S/P right hemicolectomy: Problem details: Pt is POD#1 s/p laparoscopic right hemicolectomy. He is doing well over all. Labs and exam look good. He denies significant abdominal pain, and is tole rating clear liquids PO. We will DC his IV fluids, DC his novak, encourage ambulation, advance diet to full liquids once he is passing flatus, and plan on dispo to home once he passes stool. 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
--- NOTE | 2020-10-21 10:46 | PC.NURSE ---
Addendum entered by Jaylene Blount R.N. 10/21/20 11:22: Patients novak catheter taken out, patient ambulating in halls. Patient has 8 hours to void per . Original Note: Assess- Patient is alert and oriented x3. Physical therapy worked with patient and he ambulated. He does have Parkinson's and has a shuffle when walking, patient will be a one person contact garde. ML incision cdi with old shadow ss drainage, he also has 3 lap sites that are cdi. Patient not having a lot of gas yet, we will ambulate him in the halls and if does then we can advance his diet ot full liquids.
[2020-10-21] MEDS: LEVOTHYROXINE 50 MCG TABLET PO (11:06)
--- NOTE | 2020-10-21 16:25 | CM.DANOTE ---
DCP/Brief Assessment: Patient is a 80yr old male admitted to [facility] for right hemicolectomy performed by Dr. Arias. PCP listed is Marino Arnold. Primary payor is 1)[facility]. Reviewed EMR, it is anticipated that patient will be medically cleared to d/c home within the next 24-48hrs. No identified d/c planning needs at this time. CM team to continue to follow. P: Home when stable. KJS Discharge Planning/Care Management CM Discharge Assessment Start: 10/21/20 16:22 Freq: Status: Active Protocol: Document 10/21/20 16:22 KJS (Rec: 10/21/20 16:25 KJS [id number]) Discharge Planning Assessment Assigned Habilitation Assistant PRANEETH Fernandes Contact Information Issa Villar (spouse) # Advance Directives? Yes Advance Directives on File No History Provided By Family Member,Medical Record Prior Living Arrangements House Household Members spouse Independent with ADL's Yes: Per EMR patient I in ADL's. Is patient alert and oriented? Yes Caregiver for Another No Barriers to Discharge No Discharge Plan Home Transportation Arrangement Family to provide transport when medically stable. Review Status In Process Next Review Type Continued Stay Review Pre-Anesthesia Assessment Start: 10/17/20 09:07 Freq: Status: Complete Protocol: Document 10/17/20 09:07 CAB (Rec: 10/17/20 09:25 CAB [id number]) Pre-Anesthesia Assessment PAC Comment Pt declined PAC phone assessment, chart review only Patient Information Reviewed Via Chart Review Comment COVID screen @ 10/17/20 Primary Care Provider Jennie Lowery Medical Clearance Received Yes Seen Specialist in Last 12 Months Yes Specialist Seen General surgeon Primary Language Kyrgyz Preferred Language Kyrgyz Height 177.8 cm Weight 91.172 kg Body Mass Index (BMI) 28.8 Hearing Ability Normal Visual Assist Glasses Dentition Type Teeth, Natural Present Comment Hx of Parkinsons Hx Anesthesia Reactions No: DELMIS, CPAP compliance not identified Hx Family Anesthesia Reaction No Hx Malignant Hyperthermia No Center Mgr No alcohol intake current alcohol intake frequency 0-2 drinks per day Smoking Status Never smoker Substance Use Type does not use Patient is completely paralyzed or No completely immobile Mental Status Oriented to own ability Hx Sleep Apnea Yes CPAP/BIPAP use prescribed not used Currently Taking a Beta Saeed Yes: Metoprolol Hx Chest Pain Yes: Hx of cardiac cath x 2, no TX, no stents, thought to be stress related Cardiac Testing No Hx Pacemaker/ICD No Pacemaker Rep Required? No Gastrointestinal Symptoms Constipation,Rectal Bleeding Urinary Catheter Present No Hx Urinary Self Catheterization No Diabetes No Presence of External or Internal Medical No Devices Marital Status Lives With spouse Support System Spouse Patient Discharge Plan Description Return Home Do You Have Any Spiritual Beliefs That No May Affect Your HC Choices? Do You Have Any Cultural Practices That No May Affect Your HC Choices? Emergency Contact Name Issa Villar Emergency Contact Advance Directives? Yes Advance Directives on File No Power of Medical Registrar Yes Power of Medical Registrar Name Issa Villar
[2020-10-22 04:48] VITALS: BP 144/80; PULSE 81; RESP 18; TEMP 36.5; O2SAT 96
[2020-10-22 05:34] LABS: Add Manual Diff / Slide Review NO; Basophils Absolute Auto 100 /uL (0-100); Basophils Percent Auto 0.9 % (0-2); Eosinophils Absolute Auto 100 /uL (0-450); Eosinophils Percent Auto 0.6 % (2-4); Hematocrit 40.1 % (41-53); Lymphocytes Absolute Auto 2300 /uL (1100-4500); Lymphocytes Percent Auto 18.7 % (25-40); Mean Corpuscular HGB Conc 32.5 % (30-36); Mean Corpuscular Hemoglobin 28.5 PG (26-34); Mean Corpuscular Volume 87.8 fL (80-100); Monocytes Absolute Auto 1100 /uL (0-900); Monocytes Percent Auto 9.5 % (3-14); Neutrophils Absolute Auto 8500 /uL (1500-7000); Neutrophils Percent Auto 70.3 % (50-75); Platelet Count 205 X10^3/uL (150-400); Red Blood Cell Count 4.57 X10^6/uL (4.5-5.9); Red Cell Distribution Width 15.4 % (11.6-14.8); White Blood Cell Count 12.1 X10^3/uL (4.5-11.0)
[2020-10-22 05:39] LABS: BUN Creatinine Ratio 18.5 (6-22); Blood Urea Nitrogen 17 mg/dL (9-20); Calcium 8.9 mg/dL (8.4-10.2); Carbon Dioxide 25 mmol/L (22-32); Chloride 110 mmol/L (98-107); Estimated Glomerular Filt Rate > 60.0 mL/min (>60); Glucose 90 mg/dL (80-110); HEMOLYSIS < 15 (0-50); Magnesium 2.3 mg/dL (1.6-2.3); Phosphorous 2.1 mg/dL (2.3-3.7); Potassium 3.8 mmol/L (3.4-5.1); Sodium 140 mmol/L (137-145)
[2020-10-22] MEDS: LEVOTHYROXINE 25 MCG TABLET 50 MCG PO (05:52)
[2020-10-22 07:05] VITALS: BP 131/75; PULSE 66; RESP 18; TEMP 36.3; O2SAT 97
[2020-10-22] MEDS: HEPARIN 5,000 UNIT/ML VIAL 5000 UNIT SUBCUT (08:11)
[2020-10-22] MEDS: CARBIDOPA-LEVODOPA 25/100 TABLET 1 EACH PO ×2 (08:11→12:31)
[2020-10-22] MEDS: METOPROLOL ER 50 MG TABLET 100 MG PO (08:11)
--- NOTE | 2020-10-22 10:23 | PT.IPTN ---
Current Diagnoses Benign neoplasm of colon, unspecified (10/20/20) Parkinson's disease (10/20/20) Essential (primary) hypertension (10/20/20) Diverticulosis of intestine, part unspecified, without perforation or abscess without bleeding (10/20/20) Other specified diseases of intestine (10/20/20) Personal history of other diseases of the digestive system (10/20/20) Acquired absence of other specified parts of digestive tract (10/20/20) Surgery Performed Operation Date: 10/20/20 11:15 Actual Procedures p Lap. Poss. Open Hemicolectomy(Right) - Jossie Arias MD Physical Therapy Treatment Note M2 PT-IP Current Condition Start: 10/21/20 13:08 Freq: NEEDED Status: Active Protocol: Document 10/21/20 09:57 AB (Rec: 10/21/20 13:19 AB [id number]) Physical Therapy Current Condition Current Condition Evaluation Date 10/21/20 Treatment Diagnosis s/p R lap hemicolectomy; difficulty in walking Onset Date 10/20/20 Precautions Abdominal Surgery Precautions Log Roll,Lifting Restrictions, Gait Belt above Incisional Area M3 PT-IP Subjective Start: 10/21/20 13:08 Freq: NEEDED Status: Active Protocol: Document 10/22/20 10:04 SP (Rec: 10/22/20 10:53 SP [id number]) Subjective Physical Therapy Visit Type Type Treatment Note Visit Start Time 10:04 Visit Stop Time 10:23 Total Visit Minutes 19 Notes in room and provided S throughout tx. Dr Arias providing dressing change when arrived. Physician stated will put in DC orders this am. Number of ARMY MANAGER Visits 1 Physical Therapy Visit Comments Patient Comments Pt agreeable to working with therapy, stated has been walking around hole inpt floor x2 laps multiple times a day not needing an AD or a staff to assist him, feels doing well and ready to return home with his . Therapy Pain Assessment Pain Present Pain Present Denied Pain M4 PT-IP Mobility and Gait Start: 10/21/20 13:08 Freq: NEEDED Status: Active Protocol: Document 10/22/20 10:04 SP (Rec: 10/22/20 10:53 SP [id number]) PT-Bed Mobility Assessment Rolling Type of Rolling Bilateral Level of Assist Independent Supine to Sit Supine to Sit Independent Sit to Supine Sit to Supine Independent Scooting Scooting to Edge of Bed Independent PT-Transfer Assessment Sit to and From Stand Sit to and from Stand Independent,Use of Upper Extremities Equipment Transfer Assistive Device None,Gait Belt Orthotic/Prosthetic Devices or Brace: No Transfers Transfer Destination Bed,Chair Transfer Technique ambulated without AD Transfer Ability Level of Assist Independent Comments Mobility Comments Pt was seated in chair when arrived, Dr Arias in room giving reassessments. Pt completed sit>stand w/ use of UEs as needed, SPT with no AD chair> bed independently, sit< > supine via including proper log roll techniques using UEs for assist. Pt was able to ambulate 1 lap around inpt floor >500 ft no AD Mod I with no AD, stable with instructed dynamic activities no LOB or deviations and ascended/ descended 3 stairs no AD, provided S. Pt returned to sitting at EOB when returned to room, had call light and all needs in reach before left . in room. Gait Assessment Gait Gait Assistance Required: Independent Distance (Feet) 612 Able to Maintain Weight Bearing Status Yes During Gait Assistive Devices Assistive Device None,Gait Belt Orthotic/Prosthetic Devices or Brace: No Gait Deviations General Gait Pattern Within Normal Limits Comments Gait Comments Pt normal gait around full inpt floor, no AD required, Mod I, stable during instruction head turns, large steps, quick speed, hault no LOB/ deviations. Stair Climbing Assessment Evaluation Level of Assist On Stairs Independent Devices Stair Climbing Assistive Devices None Technique/Endurance Stair Climbing Direction Ascend and Descend Stair Climbing Technique Step Over Step Number of Steps Climbed 3 Stair Climbing Set # Repetitions (reps) 1 Comments Stair Climbing Comments Assessed stair mgt incase visits sister's home, 2 stairs w/ HR. Independent no HR required, stable. PT-Balance Assessment Sitting Balance and Reactions Static Sitting Balance Ability Normal Dynamic Sitting Balance Ability Normal Standing Balance and Reactions Static Standing Balance Ability Normal Dynamic Standing Balance Ability Normal Device Used without AD Comments Other Balance Tests/Deviations/Treatment See mobility details. : M5 PT-IP Objective Assessments Start: 10/21/20 13:08 Freq: NEEDED Status: Active Protocol: Document 10/21/20 09:57 AB (Rec: 10/21/20 13:19 AB [id number]) Orientation Orientation/Cognition Level of Alertness Alert Orientation Name,Place,Situation Language Function Ability No Deficits Noted Safety Awareness Decreased Safety Awareness Gross Range of Motion Lower Extremity ROM Assessment Within Functional Limits Strength Lower Extremity Strength Hip 4-/5 Knee 4-/5 Muscle Tone Comments Muscle Tone Comments has slight RUE tremors M6 PT-IP Treatment Start: 10/21/20 13:08 Freq: NEEDED Status: Active Protocol: Document 10/22/20 10:04 SP (Rec: 10/22/20 10:53 SP [id number]) Physical Therapy Treatment Education Education Provided Precautions,Safety Other Treatments Other Treatment Performed good recall and demonstration of precautions. M7 PT-IP Assessment and Plan Start: 10/21/20 13:08 Freq: NEEDED Status: Active Protocol: Document 10/22/20 10:04 SP (Rec: 10/22/20 10:53 SP [id number]) PT Summary Assessment and Plan Potential Rehabilitation Potential Good Status of Condition at Evaluation Stable Summary Impairments Pain,ROM,Strength,Balance, Coordination,Sensation,Tone, Cognition,Bed Mobility, Transfers,Gait,Activity Tolerance Progress Towards Goals Safe For Discharge,Goals Met Assessment Summary Pt I with all mobility no AD required normal LE patterning, MET all PT goals. Pt stated I am taking my medication for PD and why walking is back to normal. Pt is ok to return home with when medically cleared. Goals Bed Mobility Goal Independent Transfer Goal Independent Gait Goal Independent Gait Distance 150 Days to Meet Goals 5 Frequency of Treatment Frequency Of Treatment Once a Day Treatment Plan Physical Therapy Treatment Plan Bed Mobility Training,Transfer Training,Gait Training, Therapeutic Exercise,Balance Retraining,Post Op Education, Discharge Planning,Hot or Cold Pack,Neuromuscular Re-ed, Coordination Retraining,Manual Therapy Other Recommendations and Next Treatment DC from PT. Focus Precautions Abdominal Surgery Precautions Log Roll,Lifting Restrictions, Gait Belt above Incisional Area Recommendations To Nursing Amount of Assist Needed Independent Discharge Recommendations PT Discharge Recommendations Home with Assistance Transportation Needs at Discharge Private Vehicle
--- NOTE | 2020-10-22 10:32 | P.DS_ITS ---
History of Present Illness History of Present Illness Chief complaint: Cecal mass Narrative: This patient is here for right hemicolectomy. To review, this is a 80-year-old man who I originally met back in May when he came into the hospital with a GI bleed. I did a colonoscopy at that time, and no specific bleeding source was found, although our greatest suspicion was that it was from his diverticulosis. He was also found to have a large polyp in the cecum, which I could not entirely remove at the time. When I saw him back in the office I gave him the option of referral to advanced endoscopy to try and have them remove it, or for me to try again. He opted for me to go ahead and try again. On my 2nd try, we had much better approach and much better bowel prep, but because of the position of the polyp it was very difficult to remove the entire thing. It sits right on top of the ileocecal valve, and even with saline injection underneath mucosa was not able to lift off of the valve enough to r emove the entire polyp. I removed several significant pieces of the polyp, but a significant portion of the polyp remains, including the base, which has a high potential of being more advanced than the more superficial pieces that were removed. 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 The patient feels fine since his procedure, and denies any particular complaints. He has not had any more episodes of bleeding since May. Interval events: The patient has now seen his primary doctor, and discussed his options (repeat endoscopic attempt by GI vs surgical right hemicolectomy). The patient has decided he would like to go ahead with hemicolectomy. He denies any new bleeding. His primary doctor met with him on 08/27 and gave him medical approval to go ahead with surgery. ROS: Thirteen system review is otherwise negative other than as mentioned below and in HPI. PE: GENERAL: Well groomed and cooperative. Appears stated age. Answers questions promptly and appropriately. Vital signs noted. HENT: Normocephalic, atraumatic. Hearing intact. EYES: Conjunctiva pink, sclera white, no periorbital swelling. CARDIOVASCULAR: Regular rate. No pedal edema. RESPIRATORY: Non-tachypneic, breathing comfortably on room air. GASTROINTESTINAL: Abdomen soft and non-distended; rounded, nontender, well- healed lower midline incision from his prostate surgery GENITALURINARY: No flank tenderness. MUSCULOSKELETAL: Equal tone and mass bilaterally. SKIN: Warm, dry, soft, appropriate color for ethnicity. No other lesions, rashes, or wounds. NEURO: Alert and Oriented X 3. Mild chorea consistent with his treated Parkinson's, or cognitive issues. PSYCH: Appropriate affect and mood. Discharge Providers Provider Date of admission: 10/20/20 09:18 Discharge Date: 10/22/20 Primary care physician: Marino Arnold MD Consults: 10/20/20 17:06 Consult to Discharge Planning Routine Comment: Consult to Physical Therapy Evaluate & Treat Comment: Patient with Parkinson's, needs assist to ambulate Physician Instructions: Evaluate and Treat Consult to Respiratory Therapy Evaluate & Treat Comment: Physician Instructions: Evaluate and treat Discharge provider: Jossie Arias MD Summary Hospital Course Discharge Diagnosis: S/p right hemicolectomy Hospital Course: The patient had a right hemicolectomy on Tuesday, tolerated clears on post op day 1, passed gas and liquid stool on post op day 1. He was advanced to full liquid diet. He denied significant pain and did not need pain meds post op. He ambulated well throughout the hallways. On POD#2 he was discharged home in stable condition, tolerating PO and passing gas and stool. Status at Discharge Cognitive/behavioral status at discharge: oriented Functional status at discharge: independent ambulation Overall status at discharge: patient is progressing back to baseline Time Spent with Patient Time spent: Greater than 30 minutes Exam Vital Signs (past 8 hours): - 10/22/20 04:48 10/22/20 07:05 Temperature 97.7 F 97.4 F L Pulse Rate 81 66 Respiratory Rate 18 18 Blood Pressure 144/80 H 131/75 Pulse Oximetry 96 97 Oxygen Delivery Method Room Air Oxygen Flow Rate 0 Narrative Exam Narrative: GENERAL:alert, comfortable, well appearing CARDIOVASCULAR: Regular rate. No pedal edema. RESPIRATORY: Non-tachypneic, breathing comfortably on room air. GASTROINTESTINAL: Abdomen soft, rounded, appropraite TTP for POD#2; incisions c/d/i MUSCULOSKELETAL: Equal tone and mass bilaterally. SKIN: Warm, dry, soft, appropriate color for ethnicity. No other lesions, rashes, or wounds. NEURO: Alert and Oriented X 3. No gross sensory deficits, or cognitive issues. PSYCH: Appropriate affect and mood. Objective Labs Result Diagrams: 10/22/20 05:00 10/22/20 05:00 Labs: Laboratory Results - last 24 hr 10/22/20 10/22/20 05:00 05:00 WBC 12.1 H RBC 4.57 Hgb 13.0 L Hct 40.1 L MCV 87.8 MCH 28.5 MCHC 32.5 RDW 15.4 H Plt Count 205 Neut % (Auto) 70.3 Lymph % (Auto) 18.7 L [place] % (Auto) 9.5 Eos % (Auto) 0.6 L Baso % (Auto) 0.9 Neut # (Auto) 8500 H Lymph # (Auto) 2300 [place] # (Auto) 1100 H Eos # (Auto) 100 Baso # (Auto) 100 Sodium 140 Potassium 3.8 Chloride 110 H Carbon Dioxide 25 BUN 17 Creatinine 0.92 Estimated GFR > 60.0 BUN/Creatinine Ratio 18.5 Glucose 90 Calcium 8.9 Phosphorus 2.1 L Magnesium 2.3 PFSH Medical History Angina at rest Diverticulitis Easy bruisability Essential hypertension Fibromyalgia GERD (gastroesophageal reflux disease) History of prostate cancer Hyperlipidemia DELMIS (obstructive sleep apnea) Parkinsons disease Surgical History History of cardiac catheterization History of prostate surgery Family History Mother Breast cancer Father Myocardial infarction Social History household members: spouse Smoking Status: Never smoker alcohol intake: current Discharge Assessment & Plan Assessment and Plan Assessment: s/p right hemicolectomy Plan of Treatment: discharge home on full liquid/soft diet advance diet as tolerated keep good hydration pain control with Tylenol/ibuprofen as needed restart regular home meds ambulate frequently metamucil daily imodium prn follow up in two weeks Discharge Plan Discharge Plan Patient Disposition: Home Provider Discharge Comment: Hydration: Drink plenty of water to keep yourself hydrated. If you feel dry mouth or notice your urine becomes darker, increase your fluid intake. Fiber intake: Keep taking your Metamucil daily. We recommend using a fiber supplement such as Metamucil, Benefiber, or psyllium husk. Use 1 tspn in 8 oz water once daily to start. You may increase or decrease the amount and frequency as needed. The goal is to have a soft, formed, stool without straining, and without having to sit on the toilet for more than 2 minutes to have a bowel movement. Stool output: Many people notice their stool is looser and more liquid for the first few weeks up to three months after colon surgery. If you begin having copious loose stool you may increase your Metamucil to help bulk up the stool, and you may carefully add Imodium to help reduce the water in the stool. If you do need Imodium, begin with on 2mg tablet, and see how it impacts your stool output. It may stop you up entirely for a day or more. If it does not help, you may gradually increase to 2mg three times daily. If that is not adequate to control your stool output, please call the surgeon's office and speak to the doctor electronic maintenance supervisor. Activity, showering, and wound care: Keep active with light activity such as gentle exercise and taking walks. Avoid lifting over 10lbs, abdominal core work, or very strenuous activity. Avoid being sedentary for prolonged periods. You may shower. After showering, keep a dry dressing over your incisional wounds as needed. If you notice any redness or drainage from the wounds, call our office and speak to Dr. Arias, or the doctor electronic maintenance supervisor. Concerns/emergencies: If you have any other concerns about your surgery or post operative care, please call the surgeon's office number and speak to the office nurse or the surgeon electronic maintenance supervisor. If you become severely ill with significant chest pain, shortness of breath, significant bleeding, or other life threatening symptoms, please call 911 or go to the ER right away. Discharge orders & Medications Prescriptions: Continued atorvastatin 10 mg tablet 10 mg PO DAILY RF: 0 metoprolol succinate 100 mg tablet extended release 24 hr 100 mg PO DAILY RF: 0 levothyroxine 50 mcg tablet 50 mcg PO DAILY RF: 0 allopurinol 300 mg tablet 300 mg PO Q OTHER DAY RF: 0 carbidopa-levodopa 25-100 mg tablet 1 tab PO TID RF: 0 aspirin 81 mg Tablet,Delayed Release (Dr/Ec) 81 mg PO DAILY Qty: 30 RF: 0 prednisone 2.5 mg tablet 2.5 mg PO Q OTHER DAY RF: 0 Discontinued magnesium citrate Solution 296 ml PO .per instructions Qty: 592 RF: 0 neomycin 500 mg tablet 1 g PO TID Qty: 6 RF: 0 erythromycin 500 mg tablet 1,000 mg PO TID Qty: 6 RF: 0 Follow up/Referrals: Marino Arnold MD [Primary Care Provider] - Jossie Arias MD [Physician] - (Please call the office to make a follow up appointment to see Dr. Arias in about two weeks.) Diet/Activity/Treatments Diet: Diet as Tolerated Diet comment: You may gradually advance your diet from liquid to soft diet Skin/Wound/Dressing Care Report to your healthcare provider any signs of infection, such as:: chills, fever, night sweats, increased pain, unusual drainage and unusual redness Visit Report/Discharge Packet Instructions: Low-Fiber/Low-Residue Diet, Full Liquid Diet, [facility]: Wound Care Stand Alone Forms: Surgery Discharge Discharge Data Primary Care Provider: Marino Arnold Quality VTE Deep Vein Thrombosis/Pulmonary Embolism Present on Admission: No
--- NOTE | 2020-10-22 11:39 | CM.DPC ---
DCP Discharge home Per Surgeon, pt tolerated procedure well and likely stable for d/c home today with spouse and outpt follow up at [facility]. Surgeon to round again about 1400 today to confirm pt is stable for d/c home. Pt ambulating halls independently with spouse present. SW met bedside with pt and spouse and explained role and discussed possible d/c home today and provided copy of Medicare Message. Pt and spouse feeling agreeable with d/c to home today if stable and do not have any concerns or anticipate any SW needs at this time. Pt and spouse quite active and independent at baseline and spouse available and plans to assist at d/c. Plan: SW to follow for likely plan of d/c home with spouse assist and outpt [facility] follow up after Surgeon rounds on pt again this afternoon. SW to follow for any further identified needs. PRANEETH Miller
[2020-10-22] MEDS: PSYLLIUM HUSK 1 PACKET PO (11:44)
--- NOTE | 2020-10-22 12:50 | DIET.PN ---
Dietary Progress Note 80y M 2d s/p hemicolectomy tolerating full liquids without N/V. Met c pt and in pt room to go over d/c nutrition instructions. Pt will be leaving on full liquid diet and will transition to low fiber diet x2w at which point he can slowly reintroduce higher fiber foods. Provided low fiber MNT packet with recommended foods and foods to avoid. Answered all nutrition related questions.
[2020-10-22 13:00] VITALS: BP 123/82; PULSE 74; RESP 20; TEMP 36.6; O2SAT 96
== END 2020-10-22 14:50 | disposition home or self-care (01) | DRG 331 ==
PROVIDERS: Admitting Provider Surgery; PCP Family Medicine; Referring Provider Family Medicine; Visit Provider Surgery
PROC: 0DTE0ZZ Resection of Large Intestine, Open Approach (ICD-10-PCS; principal; 2020-10-20 11:15)
DX: D12.0 Benign neoplasm of cecum (principal); I10 Essential (primary) hypertension; G47.33 Obstructive sleep apnea (adult) (pediatric); G20 Parkinson's disease; K57.30 Diverticulosis of large intestine without perforation or abscess without bleeding; Z85.46 Personal history of malignant neoplasm of prostate; Z20.822 Contact with and (suspected) exposure to COVID-19
CPT/HCPCS: 36415; 36592; 44205; 80048; 82962; 83735; 84100; 85025; 87635; 94762; 97116; 97161; C9803; C9290; J1100; J1644; J1956; J2704; J3010